=== PATIENT | male | born 1940 | race Caucasian/White ===

== ENCOUNTER → 2016-05-13 | Outpatient (CLI) | payer OTHER ==
[~2016-05-13] MED LIST: ASPI81TA7 PO; CHLO25TA PO; FLOM5CAP PO; NEXI40CA PO; OXYB5TA PO; PLAV75TA38 PO; TRAM50TA2 PO; TYLE650T35 PO; ZOFR4TAB3 PO
--- NOTE | 2016-05-13 13:05 | REP ---
Chest two views HISTORY: Arthritis Comparison: 01/01/2016 The lungs are clear. The heart is normal in size. The pulmonary vasculature is normal in appearance. Degenerative change is present in the thoracic spine. IMPRESSION: No acute disease. Signed by Jian Salomon MD 05/13/2016 12:57 P
[2016-05-13 13:14] LABS: MEAN CORPUSCULAR HGB CONC 33.4 g/dl (32.0-36.5); MEAN CORPUSCULAR VOLUME 89.7 fl (80.0-96.0); RED CELL DISTRIBUTION WIDTH 12.5 % (11.5-14.5); WHITE BLOOD COUNT 6.8 K/mm3 (4.0-10.0)
[2016-05-13 13:17] LABS: INR 1.02
[2016-05-13 14:25] LABS: ALKALINE PHOSPHATASE 77 U/L (45-117); ALT/SGPT 19 U/L (12-78); AST/SGOT 13 U/L (15-37); BILIRUBIN,TOTAL 0.3 MG/DL (0.2-1.0); CHLORIDE LEVEL 103 MEQ/L (98-107); CREATININE FOR GFR 0.95 MG/DL (0.70-1.30); POTASSIUM SERUM 3.4 MEQ/L (3.5-5.1); SODIUM LEVEL 140 MEQ/L (136-145); TOTAL PROTEIN 6.6 GM/DL (6.4-8.2)
[2016-05-13 14:37] LABS: ALBUMIN 3.7 GM/DL (3.2-5.2); ALBUMIN/GLOBULIN RATIO 1.28 (1.00-1.93); ANION GAP 8 MEQ/L (8-16); BLOOD UREA NITROGEN 14 MG/DL (7-18); CALCIUM LEVEL 8.8 MG/DL (8.8-10.2); CARBON DIOXIDE LEVEL 29 MEQ/L (21-32); GLUCOSE, FASTING 96 MG/DL (83-110)
== END ==
LOC: M ADMPAT 10:22
PROVIDERS: ATTEND Orthopaedic Surgery
DX: Z01.818 Encounter for other preprocedural examination (principal); M17.12 Unilateral primary osteoarthritis, left knee; Z79.899 Other long term (current) drug therapy

== ENCOUNTER 2016-05-26 06:04 | Inpatient (IN) | payer OTHER ==
[2016-05-13 11:17] VITALS: BP_SYST 121; BP_SYST 170; BP_DIAS 79; BP_DIAS 96
--- NOTE | 2016-05-20 20:44 | HPE ---
DATE OF PLANNED ADMISSION: 05/26/2016 ATTENDING PHYSICIAN: Francisco Granados MD HISTORY OF PRESENT ILLNESS: This is a pleasant male with continuing symptomatic left knee osteoarthritis. He has consented for a left total knee arthroplasty per Dr. Sandip Granados. Medical optimization was completed by Dr. Corcoran. X-rays are consistent with advanced osteoarthritis. ALLERGIES: The patient notes he was told he has a PENICILLIN allergy dating back to his teenager years. He states that Dr. Diallo told him he should not have any penicillin. MEDICATIONS: List includes: - Nexium 40 mg - Chlorthalidone 25 mg - Plavix 75 mg one tablet once a day - Flomax 0.4 mg one capsule 30 minutes after the same meal once a day each day - Ultram - aspirin 81 mg (to discontinue). - Colace 100 mg one capsule once a day - oxybutynin chloride 5 mg one tablet twice a day - Tylenol extra-strength arthritis pain 500 mg two tablets twice a day MEDICAL PROBLEM LIST: Includes: Left knee symptomatic osteoarthritis He has a history of stroke. Hypertension. History of left leg surgery. A ann marie was placed. Prostatectomy. Hyperlipidemia. Benign prostatic hypertrophy (BPH). Gastroesophageal reflux disease (GERD). FAMILY HISTORY: Positive for cancer. SOCIAL HISTORY: Denies smoking. Rare ethanol intake. Denies illicit drugs. REVIEW OF SYSTEMS: He denies chest pain, shortness of breath, dyspnea on exertion, fever, chills, malaise, upper respiratory, urinary tract symptoms. He recently had successful surgery with Dr. Enriquez. He also saw Dr. Corcoran recently and was told he had a urinary tract infection and is taking clindamycin. PHYSICAL EXAMINATION: Height 5 foot 7, weight 208, temperature 97.0, BP 139/70, pulse 88, respirations 16. He is a pleasant well-developed, well-nourished overweight white male in no acute distress. Alert and oriented times three. Mood and affect are appropriate. He is ambulating slow, steady with favoring of his right lower extremity, antalgic about the left. Bilateral lower extremities inspected. Skin temperature, color, sensory and motor within normal limits. Left knee. He has positive medial and lateral joint line tenderness to palpation with crepitance through flexion and extension. PFJ is concentric, static and dynamic. Otherwise benign noninfectious looking knee. PFJ is considered static and dynamic. Normocephalic. Neck: Supple. Negative jugular venous distention (JVD) or bruits. Lungs: Clear to auscultation. Chest: Rises symmetrically. Bowel soft, nontender times four. LABS: His labs were reviewed. Potassium 3.4, AST SGOT was 13. Leukocyte esterase: urine auto 3+. Blood urine 2+. WBC 151, RBC urine auto 33. Bacteria urine auto 1+. His urine culture was positive for Streptococcus gallolyticus, colony count greater than 100,000 which he is currently being treated with clindamycin 150 mg every 6 hours. Nasal sinus culture within normal limits. His chest x-ray showed no acute disease and EKG was not available, though I did have his clearance note by Dr. Corcoran stating that his EKG was reviewed and he was medically optimized. IMPRESSION: 1. Symptomatic left knee osteoarthritis. 2. Patient consented for a left total knee arthroplasty per Dr. Sandip Granados. 3. Medical optimization per Dr. Rosario. 4. score caller to OR 600 mg IV clindamycin per prior history of PENICILLIN allergy. 5. Sequential compression devices (SCDs) and thromboembolism deterrents (TEDs) in OR. 6. The patient will complete his course of clindamycin 150 mg orally every 6 hours per urinary tract infection.
[~2016-05-26] VITALS: Ht 167.6 cm; Wt 91.0 kg
[~2016-05-26 06:04] MED LIST changes: +ACETAMINOPHEN 500 MG TAB PO ONE; +LR 1,000 ML IV SCH; +VANCOMYCIN HCL 1,000 MG, VIAL MATE ADAPTER 1 EACH in D5W 250 ML IV ONE
[2016-05-26] MEDS ORDERED: fentaNYL 100 MCG/2 ML INJECTION (J3010) As Ordered ONE ×3 (06:39→08:11)
[2016-05-26] MEDS ORDERED: MIDAZOLAM INJ 2 MG/2 ML VIAL (J2250) As Ordered ONE ×2 (06:39→08:11)
[2016-05-26] MEDS ORDERED: COUM1TAB17 PO (07:07)
[2016-05-26] MEDS ORDERED: BUPIVACAINE HCL 0.5% 10 ML VIAL As Ordered ONE (07:21)
[2016-05-26] MEDS ORDERED: ROPIvacaine 0.5% 30 ML INJECTION (J2795) As Ordered ONE (07:21)
[2016-05-26] MEDS ORDERED: CLINDAMYCIN INJ 900MG/6ML VIAL As Ordered ONE (07:22)
[2016-05-26] MEDS ORDERED: TRANEXAMIC ACID 100 MG/ML 10ML VIAL As Ordered ONE (07:37)
[2016-05-26] MEDS ORDERED: EPINEPHrine INJ 1 MG/ML 1ML VIAL/AMP As Ordered ONE (07:38)
[2016-05-26] MEDS: fentaNYL 100 MCG/2 ML INJECTION (J3010) XX ONE ×2 (07:42→08:41)
[2016-05-26] MEDS ORDERED: PROPOFOL 500 MG/50 ML VIAL As Ordered ONE (08:11)
[2016-05-26] MEDS ORDERED: PHENYLephrine HCL 500 MCG/5 ML (100MCG/ML) SYRINGE (J2370) As Ordered ONE (08:11)
[2016-05-26] MEDS ORDERED: BUPIVACAINE HCL 0.5% 10 ML VIAL XX ONE (08:41)
[2016-05-26] MEDS ORDERED: TRANEXAMIC ACID 100 MG/ML 10ML VIAL XX ONE (08:41)
[2016-05-26] MEDS ORDERED: CLINDAMYCIN INJ 900MG/6ML VIAL IR ONE (08:41)
[2016-05-26] MEDS ORDERED: EPINEPHrine INJ 1 MG/ML 1ML VIAL/AMP XX ONE (08:41)
[2016-05-26] MEDS ORDERED: ROPIvacaine 0.5% 30 ML INJECTION (J2795) XX ONE (08:41)
[2016-05-26] MEDS: MIRALAX *UNIT DOSE* 17GM PACKET PO SCH (09:00)
[2016-05-26] MEDS: SENOKOT S TAB PO SCH ×2 (09:00→21:08)
[2016-05-26] MEDS ORDERED: NALBUPHINE HCL 10 MG/ML AMP (J2300) IV PRN (10:00)
[2016-05-26] MEDS ORDERED: diphenhydrAMINE INJ 50MG/ML VIAL (J1200) IV PRN (10:00)
[2016-05-26] MEDS ORDERED: MORPHINE PCA 1MG/ML 100ML CADD IV PRN (10:00)
[2016-05-26] MEDS ORDERED: NALOXONE INJ 0.4 MG/1 ML VIAL (J2310) IV PRN (10:00)
[2016-05-26] MEDS ORDERED: ONDANSETRON 4MG/2ML VIAL (J2405) IV PRN (10:00)
[2016-05-26] MEDS ORDERED: EPIDURAL/PCA KEYS XX PRN (10:00)
--- NOTE | 2016-05-26 10:31 | RO ---
DATE OF PROCEDURE: 05/26/2016 PREPROCEDURE DIAGNOSIS: Left knee valgus degenerative arthritis. POSTPROCEDURE DIAGNOSIS: Left knee valgus degenerative arthritis. PROCEDURE: Left total knee arthroplasty using a size 3 cruciate retaining femoral component with a size 4 tibial tray with a 12.5 mm rotating platform polyethylene insert and a 35 mm polyethylene button. All components were cemented The prosthesis made by [employer]. It was a PFC knee. SURGEON: Francisco Granados MD STRIPE MARKER: Mrs. Xiomy Armstrong ANESTHESIA: Spinal with left femoral nerve block. COMPLICATIONS: None. ESTIMATED BLOOD LOSS: 20 mL. SPECIMENS: Joint surface. DESCRIPTION OF PROCEDURE: After antibiotics were given intravenously preoperatively and a successful spinal and left femoral nerve block anesthetic had been established, tourniquet was placed on the left upper thigh and not inflated. The left lower extremity was then prepped and draped in the usual sterile fashion. Then, the leg was elevated. Then, after appropriate time-out, the tourniquet was inflated to 250 mmHg. A longitudinal incision was made for a medial parapatellar approach to the knee. Bovie cautery used to coagulate crossing vessels. A medial parapatellar arthrotomy performed. Limited dissection proximal medially was performed because of this valgus knee; and then, we everted the patella and flexed the knee. We removed any remaining cartilage off the medial frontal condyle, such that the jig would fit flush. There was no cartilage left in the lateral compartment. The drill was placed down the center of the femoral canal by hand and eye. I made sure that we were aligned with the distal femur. Then, the intramedullary ann marie advanced until we could feel the screw above in the femoral shaft, and the jig was then set at 5-degree valgus cut, 10-mm resection level for a left knee, then pinned in position, and then distal femoral cut performed. AP sizing jig measured between a 3 and a 4. It was a little bit closer to a 3. Thus, I pinned it in a size 3. I used the external rotation jig at 3 degrees because of the potential wear for this valgus knee at the posterolateral condyle, and I also did a secondary check using Whitesides line and the epicondylar axis to make sure it was as close as perpendicular as possible by my estimation. The 4-in-1 block was then pinned into position. Then, the anterior and posterior chamfer cuts performed. We then exposed the proximal tibia, used the extramedullary alignment jig to be sure we were parallel to the mechanical axis, and we measured both the medial and lateral tibial plateaus, and it came out about the same at about 4 mm of resection equally. The jig was pinned in position, and an extramedullary alignment ann marie was used for a secondary check to be sure we were parallel to the mechanical axis. We appeared to be so; and then, then the proximal tibial osteotomy was then performed. We then placed the lamina brake reliner laterally and performed a completion of medial meniscectomy. There was minimal osteophytes medially noted, but what did remain were removed. We then placed the lamina brake reliner medially and performed a completion of lateral meniscectomy with debridement of posterior and lateral osteophytes. We then used the spacer blocks, and a 12.5 actually fit the best, and he was surprisingly very symmetrical in both his flexion space and extension space. There was perfect soft tissue balancing without any need for releases. I was quite surprised, given the valgus alignment of the knee. Thus, at this point, I did feel that a posterior cruciate-retaining component would be adequate. We did not need to go to the posterior cruciate sacrificing. The proximal tibia was then exposed and sized for a #4 tibial tray, which was pinned, reamed, and broached into position, followed by the 12.5 polyethylene, and then the #3 femoral component; and the knee had excellent range of motion and good stability to both varus and valgus stress testing in flexion and in extension. We then brought the knee to extension, everted the patella, and performed a patellar osteotomy, sized for a 35 button. The lug holes were drilled. Patellofemoral tracking was anatomic. We then drilled the lug holes for the femur, removed all the trial components, copiously pulsatile lavage irrigated out the knee joint of any the excess debris, and made sure all the bony surfaces were thoroughly dried. As I was doing that, my apartment assistant manager, Jewel Xiomy Nathaniel mixed the cement on the back table. She was also critical to the success of the procedure by helping to manipulate the knee as needed, help with appropriate soft tissue retraction, help to close the wound, and prepare the patient, and many other tasks to help the operation go smoothly and efficiently. There was a bit of a cyst in the proximal tibia, which I curetted out; and then, I placed some fragments of bone graft that I rongeured away from the bone cuts from off the femur to fill that area; and then, we cemented the tibial tray, removed excess cement; and then, we cemented the femoral component, removed excess cement, brought the knee into extension, and then cemented the patellar button, held the knee in extension with a clamp until the cement had hardened. While it was hardening, I copiously pulsatile lavage irrigated out the knee joint once again, as I did several times throughout the operation, then closed the apex of the wound with two #1 polydioxanone suture (PDS) sutures. The medial parapatellar was closed with a single PDS at the appropriate alignment, and then we closed the deep fascia and capsule with a running double-arm Stratafix suture. Tourniquet was then released. Copiously pulsatile lavage irrigated. Placed the PainBuster catheter. It was noteworthy that we did place the tranexamic acid (TXA) solution after we irrigated out the knee joint before closure of the arthrotomy. We then closed the deep subdermal tissues with interrupted #2-0 PDS sutures. The skin was closed with breanne, covered by Adaptic dry sterile bulky dressing, and then he was transferred to the recovery room in stable condition. There were no intraoperative complications.
[2016-05-26] MEDS ORDERED: fentaNYL 100 MCG/2 ML INJECTION (J3010) IV ONE (10:45)
[2016-05-26] MEDS ORDERED: MIDAZOLAM INJ 2 MG/2 ML VIAL (J2250) IV ONE ×2 (10:45→11:00)
[2016-05-26] MEDS ORDERED: FLEET ENEMA PR PRN (11:00)
[2016-05-26] MEDS ORDERED: ACETAMINOPHEN TAB 650MG DOSE (2X325MG) PO PRN (11:00)
[2016-05-26] MEDS ORDERED: LIDOCAINE 2% INJ 100 MG/5 ML SDV (FOR ANES.) As Ordered ONE (11:05)
--- NOTE | 2016-05-26 12:13 | CR ---
DATE OF CONSULTATION: 05/26/2016 REQUESTED BY: Dr. Sandip Granados. PRIMARY CARE PROVIDER: Dr. Jian Corcoran. REASON FOR CONSULTATION: Medical management. HISTORY OF PRESENT ILLNESS: This is a 76-year-old male patient with underlying medical history of cerebrovascular accident (CVA) with no residual deficits, hypertension, dyslipidemia, prostatectomy, benign prostate hypertrophy (BPH), gastroesophageal reflux disease (GERD), osteoarthritis, admitted under orthopedic service status post left total knee arthroplasty. Medicine consulted for medical management. Patient seen and examined. No acute events. Currently comfortable, in no significant pain with spinal block. Denies any chest pain, pressure or discomfort. Denies any shortness of breath. Denies history of chronic obstructive pulmonary disease (COPD). Does not use oxygen. Does not use CPAP at home. Denies history or obstructive sleep apnea. ALLERGIES: Patient notes allergies to PENICILLIN dated back many years ago, unknown reaction. PAST MEDICAL HISTORY: Left knee osteoarthritis. History of stroke May 2009 with no residual deficit. Hypertension. History of left leg surgery with ann marie placement. Prostatectomy. Dyslipidemia. Benign prostatic hypertrophy. Gastroesophageal reflux disease (GERD). PAST SURGICAL HISTORY: Prostatectomy. Left leg surgery with ann marie placement. FAMILY HISTORY: Noncontributory. SOCIAL HISTORY: Quit smoking 30 years ago. Drinks about six cans of beer in half a year. Denies elicit drug use. Lives with his girlfriend. Review of systems negative except for those mentioned in the history of present illness. HOME MEDICATION: - aspirin 81 mg daily - Plavix 75 mg by mouth daily, has been on hold for surgery - acetaminophen 650 mg by mouth twice daily as needed - chlorthalidone 25 mg by mouth daily - Nexium 40 mg by mouth daily - Flomax 0.4 mg by mouth daily at nighttime - Coumadin 5 mg by mouth PHYSICAL EXAMINATION: General: Patient alert and oriented times three. In no acute distress. HEENT: Normocephalic, atraumatic. Cranial nerves II-XII grossly intact. Pulmonary: Bilaterally clear to auscultation. Cardiac: Regular S1, S2. Abdomen: Soft, nontender, nondistended. Extremities: Dorsalis pedis/posterior tibial (DP/PT) pulses intact bilateral lower extremities. LABORATORY: Pending. ASSESSMENT AND PLAN: This is a 76-year-old male patient with underlying medical history of cerebrovascular accident (CVA) with no residual deficit, hypertension, dyslipidemia, gastroesophageal reflux disease (GERD), benign prostatic hypertrophy (BPH), osteoarthritis, admitted under orthopedic service for left total knee replacement surgery. PROBLEMS: 1. Osteoarthritis admitted under orthopedics status post left total knee replacement surgery. Deep venous thrombosis (DVT) prophylaxis, physical therapy. Perioperative management and pain management as per orthopedic service. Bowel regimen has been added. Followup INR. Patient likely will be on Coumadin for DVT prophylaxis. Plavix has been on hold. Will be restarting aspirin tomorrow given history of CVA. Hold Plavix until patient is off Coumadin. 2. Hypertension. Continue home medication, monitor blood pressure. 3. Dyslipidemia. Dietary modification. Continue to follow as outpatient. 4. History of cerebrovascular accident (CVA). Continue aspirin. Patient will be on Coumadin. Monitor blood pressure. 5. Benign prostatic hypertrophy (BPH), continue Flomax. 6. Deep venous thrombosis (DVT) prophylaxis. Patient will be on Coumadin likely by orthopedic service. DISCHARGE PLANNING: As per primary team.
[2016-05-26 12:15] VITALS: BP 159/83
[2016-05-26 12:45] VITALS: BP 154/71
[2016-05-26] MEDS ORDERED: PATIENT IS CURRENTLY ON AN ON-Q PAIN BUSTER PAIN RELIEF SYSTEM XX SCH (13:30)
[2016-05-26 13:45] VITALS: BP 124/63
[2016-05-26 14:45] VITALS: BP 114/80
[2016-05-26] MEDS ORDERED: ROPIvacaine 0.5% 30 ML INJECTION (J2795) ONE (15:28)
[2016-05-26] MEDS ORDERED: LIDOCAINE 1% MDV 20ML VIAL ONE (15:28)
[2016-05-26] MEDS ORDERED: EPINEPHrine INJ 1 MG/ML 1ML VIAL/AMP ONE (15:28)
[2016-05-26] MEDS: LR 1,000 ML IV SCH ×2 (15:48→21:08)
[2016-05-26] MEDS: CHLORTHALIDONE 25 MG TAB PO SCH (17:53)
[2016-05-26] MEDS: TAMSULOSIN 0.4 MG CAP PO SCH (17:54)
[2016-05-26] MEDS: ASPIRIN 81 MG ENTERIC TAB PO SCH (17:54)
[2016-05-26] MEDS ORDERED: VANCOMYCIN HCL 1,000 MG, VIAL MATE ADAPTER 1 EACH in D5W 250 ML IV ONE (19:00)
[2016-05-26 22:00] VITALS: BP 115/64
[2016-05-27 02:00] VITALS: BP 125/96
[2016-05-27 06:00] VITALS: BP 124/65
[2016-05-27 07:16] LABS: MEAN CORPUSCULAR HEMOGLOBIN 29.2 pg (27.0-33.0); MEAN CORPUSCULAR HGB CONC 32.7 g/dl (32.0-36.5); MEAN CORPUSCULAR VOLUME 89.1 fl (80.0-96.0); RED CELL DISTRIBUTION WIDTH 12.5 % (11.5-14.5); WHITE BLOOD COUNT 8.9 K/mm3 (4.0-10.0)
[2016-05-27 07:29] LABS: INR 1.06
[2016-05-27 07:32] LABS: ANION GAP 7 MEQ/L (8-16); BLOOD UREA NITROGEN 10 MG/DL (7-18); CALCIUM LEVEL 8.3 MG/DL (8.8-10.2); CARBON DIOXIDE LEVEL 32 MEQ/L (21-32); CHLORIDE LEVEL 97 MEQ/L (98-107); CREATININE FOR GFR 0.89 MG/DL (0.70-1.30); GLOMERULAR FILTRATION RATE > 60.0 (>42); GLUCOSE, FASTING 105 MG/DL (83-110); MAGNESIUM LEVEL 1.7 MG/DL (1.8-2.4); POTASSIUM SERUM 3.5 MEQ/L (3.5-5.1); SODIUM LEVEL 136 MEQ/L (136-145)
[2016-05-27] MEDS: PERCOCET 5MG/325MG TAB PO PRN ×3 (08:31→22:07)
[2016-05-27 09:11] VITALS: BP 188/98
[2016-05-27 09:29] VITALS: BP 158/84
[2016-05-27] MEDS: SENOKOT S TAB PO SCH ×2 (10:29→22:06)
[2016-05-27] MEDS: PANTOPRAZOLE 40MG TAB (PROTONIX) PO SCH (10:29)
[2016-05-27] MEDS: MOM 30ML SUSPENSION UDC PO SCH (10:29)
[2016-05-27] MEDS: MIRALAX *UNIT DOSE* 17GM PACKET PO SCH (10:29)
[2016-05-27] MEDS: TAMSULOSIN 0.4 MG CAP PO SCH (10:30)
[2016-05-27] MEDS: ASPIRIN 81 MG ENTERIC TAB PO SCH (10:31)
[2016-05-27] MEDS: CHLORTHALIDONE 25 MG TAB PO SCH (10:31)
--- NOTE | 2016-05-27 10:34 | REP ---
LEFT KNEE: AP and lateral views of left knee performed. There is total knee arthroplasty present with femoral and tibial components appearing to be in good position. There is no fracture or dislocation. Metallic skin breanne are seen anteriorly. Signed by Andres Israel MD 05/27/2016 04:55 P
[2016-05-27] MEDS: HEPARIN SOD (PORCINE) 5000 UNITS/ML VIAL SQ SCH ×3 (11:53→22:05)
--- NOTE | 2016-05-27 12:37 | IPNPDOC ---
Subjective Date Seen The patient was seen on 05/27/16. Subjective Chief Complaint/HPI The patient is a 76-year-old male admitted with a reason for visit of Arthritis Left Knee. Events since last encounter no acute events overnight, reported surgical pain within tolerable limits. Denied fever, chill, chest pain, sob. General: Denies: Chills, Fatigue, Night Sweats Constitutional: Denies: Chills, Fever Eyes: Denies: Pain, Vision change ENT: Denies: Dysphagia, Ear Pain, Head Aches Pulmonary: Denies: Cough, Dyspnea Cardiovascular: Denies: Chest Pain, Palpitations Gastrointestinal: Denies: Nausea, Vomiting Musculoskeletal: Reports: Leg Pain Neurological: Denies: Numbness, Weakness Objective Physical Examination General Exam: Positive: Alert, Cooperative, No Acute Distress Eye Exam: Positive: PERRLA ENT Exam: Positive: Atraumatic, Mucous membr. moist/pink Neck Exam: Positive: Supple Chest Exam: Positive: Clear to auscultation, Normal air movement Heart Exam: Positive: Normal S1, Normal S2, Rate Normal Abdomen Exam: Positive: Normal bowel sounds, Soft, Negative: Hepatospenomegaly, Tenderness Extremity Exam: Positive: Other (dp/pt 2+ b/l ), Negative: Clubbing, Cyanosis, Edema Assessment /Plan Problems (1) Osteoarthritis Status: Acute Problem Text: s/p left TKA 05/26, admitted under ortho, gary-op management, wound, pain med and dvt ppx as per ortho, on heparin SQ for DVT ppx PT and PM&R eval as per ortho (2) CVA (cerebral vascular accident) Status: Chronic Problem Text: no residual def, c/w asa, restart plavix tomorrow monitor BP (3) HTN (hypertension) Status: Chronic Problem Text: c/w bp meds (4) BPH (benign prostatic hyperplasia) Status: Chronic Problem Text: flomax (5) HLD (hyperlipidemia) Status: Chronic Problem Text: outpatient f/u, diet modification Plan/VTE VTE Prophylaxis Ordered?: Yes (heparin SQ) Disposition as per ortho, PM&R screen VS, I&O, 24H, Fishbone Vital Signs/I&O Vital Signs Date Time Temp Pulse Resp B/P Pulse Ox O2 Delivery O2 Flow Rate FiO2 05/27/16 09:29 99.3 86 16 158/84 93 Room Air 05/27/16 06:00 2.0 I&O- Last 24 Hours up to 6 AM 05/27/16 06:00 Intake Total 2215 ml Output Total 2820 ml Balance -605 ml Laboratory Data 24H LABS Laboratory Tests 2 05/27/16 06:45: Anion Gap 7L, Blood Urea Nitrogen 10, Creatinine 0.89, Sodium Level 136, Potassium Level 3.5, Chloride Level 97L, Carbon Dioxide Level 32, Calcium Level 8.3L, Glomerular Filtration Rate > 60.0, Magnesium Level 1.7L, Prothromb Time International Ratio 1.06, Prothrombin Time 13.9 CBC/BMP Laboratory Tests 05/27/16 06:45 Calcium Level 8.3 L, Red Blood Count 4.60, Mean Corpuscular Volume 89.1, Mean Corpuscular Hemoglobin 29.2, Mean Corpuscular Hemoglobin Concent 32.7, Red Cell Distribution Width 12.5 AIMEE KNOWLES MD May 27, 2016 12:37
[2016-05-27] MEDS ORDERED: POTASSIUM CHLORIDE 10 MEQ SR TABLET PO ONE (13:00)
[2016-05-27] MEDS ORDERED: MAG SULF 1GM/100ML (MAG RUN) 1 GM in APPROPRIATE DILUENT 1 EA IV ONE (13:00)
[2016-05-27 14:00] VITALS: BP 145/74
[2016-05-27] MEDS: ONDANSETRON 4 MG TAB (S0181) PO PRN (17:23)
[2016-05-27 22:00] VITALS: BP 156/70
[2016-05-28] MEDS: PERCOCET 5MG/325MG TAB PO PRN ×5 (02:57→21:51)
[2016-05-28 06:00] VITALS: BP 122/75
[2016-05-28 07:06] LABS: INR 1.1
[2016-05-28 07:07] LABS: MEAN CORPUSCULAR HEMOGLOBIN 29.5 pg (27.0-33.0); MEAN CORPUSCULAR HGB CONC 33.7 g/dl (32.0-36.5); MEAN CORPUSCULAR VOLUME 87.7 fl (80.0-96.0); RED CELL DISTRIBUTION WIDTH 12.4 % (11.5-14.5); WHITE BLOOD COUNT 10.6 K/mm3 (4.0-10.0)
[2016-05-28 07:26] LABS: ANION GAP 8 MEQ/L (8-16); BLOOD UREA NITROGEN 10 MG/DL (7-18); CALCIUM LEVEL 8.7 MG/DL (8.8-10.2); CARBON DIOXIDE LEVEL 33 MEQ/L (21-32); CHLORIDE LEVEL 94 MEQ/L (98-107); CREATININE FOR GFR 0.97 MG/DL (0.70-1.30); GLOMERULAR FILTRATION RATE > 60.0 (>42); GLUCOSE, FASTING 105 MG/DL (83-110); MAGNESIUM LEVEL 2.2 MG/DL (1.8-2.4); POTASSIUM SERUM 3.7 MEQ/L (3.5-5.1); SODIUM LEVEL 135 MEQ/L (136-145)
[2016-05-28] MEDS ORDERED: PERC5TAB6 PO (07:43)
[2016-05-28] MEDS: MIRALAX *UNIT DOSE* 17GM PACKET PO SCH (07:54)
[2016-05-28] MEDS: ASPIRIN 81 MG ENTERIC TAB PO SCH (07:54)
[2016-05-28] MEDS: PANTOPRAZOLE 40MG TAB (PROTONIX) PO SCH (07:54)
[2016-05-28] MEDS: TAMSULOSIN 0.4 MG CAP PO SCH (07:54)
[2016-05-28] MEDS: MOM 30ML SUSPENSION UDC PO SCH (07:54)
[2016-05-28] MEDS: CHLORTHALIDONE 25 MG TAB PO SCH (07:54)
[2016-05-28] MEDS: SENOKOT S TAB PO SCH ×2 (07:54→20:10)
[2016-05-28] MEDS ORDERED: CLOPIDOGREL 75 MG TAB PO SCH (09:00)
[2016-05-28] MEDS: ONDANSETRON 4 MG TAB (S0181) PO PRN ×2 (12:15→16:28)
[2016-05-28 14:00] VITALS: BP 139/75
[2016-05-28] MEDS: diphenhydrAMINE 25 MG CAP PO PRN ×2 (16:26→21:49)
--- NOTE | 2016-05-28 19:30 | IPNPDOC ---
Subjective Date Seen The patient was seen on 05/28/16. Subjective Chief Complaint/HPI The patient is a 76-year-old male admitted with a reason for visit of Arthritis Left Knee. Events since last encounter No acute events overnight, reported surgical pain tolerable. Denied CP/Pal/N/V/ abd pain. passing gas Objective Physical Examination General Exam: Positive: Alert, Cooperative, No Acute Distress Eye Exam: Positive: PERRLA ENT Exam: Positive: Atraumatic, Mucous membr. moist/pink Neck Exam: Positive: Supple Chest Exam: Positive: Clear to auscultation, Normal air movement Heart Exam: Positive: Normal S1, Normal S2, Rate Normal Abdomen Exam: Positive: Normal bowel sounds, Soft, Negative: Hepatospenomegaly, Tenderness Extremity Exam: Positive: Other (dp/pt 2+ b/l ), Negative: Clubbing, Cyanosis, Edema Assessment /Plan Problems (1) Osteoarthritis Status: Acute Problem Text: s/p left TKA 05/26, admitted under ortho, gary-op management, wound, pain med and dvt ppx as per ortho, was heparin SQ for DVT ppx, now on asa, plavix and early ambulation PT and PM&R eval as per ortho (2) CVA (cerebral vascular accident) Status: Chronic Problem Text: no residual def, c/w asa, restart plavix monitor BP (3) HTN (hypertension) Status: Chronic Problem Text: c/w bp meds (4) BPH (benign prostatic hyperplasia) Status: Chronic Problem Text: flomax (5) HLD (hyperlipidemia) Status: Chronic Problem Text: outpatient f/u, diet modification Plan/VTE VTE Prophylaxis Ordered?: Yes (on asa and plavix and early ambulate and venodyne) Disposition pending ortho and PT VS, I&O, 24H, Fishbone Vital Signs/I&O Vital Signs Date Time Temp Pulse Resp B/P Pulse Ox O2 Delivery O2 Flow Rate FiO2 05/28/16 16:57 16 05/28/16 15:17 99.8 05/28/16 14:00 95 139/75 92 Room Air 05/27/16 06:00 2.0 I&O- Last 24 Hours up to 6 AM 05/28/16 06:00 Intake Total 2040 ml Output Total 1725 ml Balance 315 ml Laboratory Data 24H LABS Laboratory Tests 2 05/28/16 06:30: Anion Gap 8, Blood Urea Nitrogen 10, Creatinine 0.97, Sodium Level 135L, Potassium Level 3.7, Chloride Level 94L, Carbon Dioxide Level 33H, Calcium Level 8.7L, Glomerular Filtration Rate > 60.0, Magnesium Level 2.2, Prothromb Time International Ratio 1.10, Prothrombin Time 14.3 CBC/BMP Laboratory Tests 05/28/16 06:30 Calcium Level 8.7 L, Red Blood Count 4.54, Mean Corpuscular Volume 87.7, Mean Corpuscular Hemoglobin 29.5, Mean Corpuscular Hemoglobin Concent 33.7, Red Cell Distribution Width 12.4 AIMEE KNOWLES MD May 28, 2016 19:30
[2016-05-28 22:00] VITALS: BP 150/73
[2016-05-29] MEDS: diphenhydrAMINE 25 MG CAP PO PRN ×4 (01:45→21:37)
[2016-05-29] MEDS: PERCOCET 5MG/325MG TAB PO PRN ×5 (01:47→21:38)
[2016-05-29] MEDS ORDERED: CLOPIDOGREL 75 MG TAB PO ONE (03:15)
[2016-05-29 06:00] VITALS: BP 140/78
[2016-05-29 06:45] LABS: MEAN CORPUSCULAR HEMOGLOBIN 29.2 pg (27.0-33.0); MEAN CORPUSCULAR HGB CONC 33.2 g/dl (32.0-36.5); MEAN CORPUSCULAR VOLUME 88.2 fl (80.0-96.0); RED CELL DISTRIBUTION WIDTH 12.6 % (11.5-14.5); WHITE BLOOD COUNT 9.1 K/mm3 (4.0-10.0)
[2016-05-29 06:59] LABS: ANION GAP 8 MEQ/L (8-16); BLOOD UREA NITROGEN 12 MG/DL (7-18); CALCIUM LEVEL 8.5 MG/DL (8.8-10.2); CARBON DIOXIDE LEVEL 33 MEQ/L (21-32); CHLORIDE LEVEL 94 MEQ/L (98-107); CREATININE FOR GFR 1.04 MG/DL (0.70-1.30); GLOMERULAR FILTRATION RATE > 60.0 (>42); GLUCOSE, FASTING 106 MG/DL (83-110); MAGNESIUM LEVEL 2.3 MG/DL (1.8-2.4); POTASSIUM SERUM 3.5 MEQ/L (3.5-5.1); SODIUM LEVEL 135 MEQ/L (136-145)
[2016-05-29] MEDS ORDERED: POTASSIUM CHLORIDE 10 MEQ SR TABLET PO ONE (07:30)
[2016-05-29 08:12] VITALS: BP 144/80
[2016-05-29] MEDS: ASPIRIN 81 MG ENTERIC TAB PO SCH (09:06)
[2016-05-29] MEDS: MOM 30ML SUSPENSION UDC PO SCH (09:06)
[2016-05-29] MEDS: SENOKOT S TAB PO SCH ×2 (09:06→20:03)
[2016-05-29] MEDS: PANTOPRAZOLE 40MG TAB (PROTONIX) PO SCH (09:06)
[2016-05-29] MEDS: CHLORTHALIDONE 25 MG TAB PO SCH (09:06)
[2016-05-29] MEDS: TAMSULOSIN 0.4 MG CAP PO SCH (09:06)
[2016-05-29] MEDS: MIRALAX *UNIT DOSE* 17GM PACKET PO SCH (09:06)
[2016-05-29] MEDS ORDERED: CLOPIDOGREL 75 MG TAB PO SCH (12:00)
[2016-05-29 14:00] VITALS: BP 131/72
--- NOTE | 2016-05-29 21:14 | IPNPDOC ---
Subjective Date Seen The patient was seen on 05/29/16. Subjective Chief Complaint/HPI The patient is a 76-year-old male admitted with a reason for visit of Arthritis Left Knee. Events since last encounter No acute events overnight, Denied CP/SOB/abd pain/n/v, surgical pain tolerable Objective Physical Examination General Exam: Positive: Alert, Cooperative, No Acute Distress Eye Exam: Positive: PERRLA ENT Exam: Positive: Atraumatic, Mucous membr. moist/pink Neck Exam: Positive: Supple Chest Exam: Positive: Clear to auscultation, Normal air movement Heart Exam: Positive: Normal S1, Normal S2, Rate Normal Abdomen Exam: Positive: Normal bowel sounds, Soft, Negative: Hepatospenomegaly, Tenderness Extremity Exam: Positive: Other (dp/pt 2+ b/l ), Negative: Clubbing, Cyanosis, Edema Assessment /Plan Problems (1) Osteoarthritis Status: Acute Problem Text: s/p left TKA 05/26, admitted under ortho, gary-op management, wound, pain med and dvt ppx as per ortho, was on heparin SQ for DVT ppx, now on asa, plavix and early ambulation PT and PM&R eval as per ortho (2) CVA (cerebral vascular accident) Status: Chronic Problem Text: no residual def, c/w asa, restart plavix monitor BP (3) HTN (hypertension) Status: Chronic Problem Text: c/w bp meds (4) BPH (benign prostatic hyperplasia) Status: Chronic Problem Text: flomax (5) HLD (hyperlipidemia) Status: Chronic Problem Text: outpatient f/u, diet modification Plan/VTE VTE Prophylaxis Ordered?: Yes (on asa and plavix and early ambulate and venodyne) Disposition as per primary team, pending PT VS, I&O, 24H, Fishbone Vital Signs/I&O Vital Signs Date Time Temp Pulse Resp B/P Pulse Ox O2 Delivery O2 Flow Rate FiO2 05/29/16 18:18 18 05/29/16 14:00 98.7 89 131/72 95 Room Air 05/27/16 06:00 2.0 I&O- Last 24 Hours up to 6 AM 05/29/16 06:00 Intake Total 480 ml Output Total 1375 ml Balance -895 ml Laboratory Data 24H LABS Laboratory Tests 2 05/29/16 06:30: Anion Gap 8, Blood Urea Nitrogen 12, Creatinine 1.04, Sodium Level 135L, Potassium Level 3.5, Chloride Level 94L, Carbon Dioxide Level 33H, Calcium Level 8.5L, Glomerular Filtration Rate > 60.0, Magnesium Level 2.3 CBC/BMP Laboratory Tests 05/29/16 06:30 Calcium Level 8.5 L, Red Blood Count 4.25 L, Mean Corpuscular Volume 88.2, Mean Corpuscular Hemoglobin 29.2, Mean Corpuscular Hemoglobin Concent 33.2, Red Cell Distribution Width 12.6 AIMEE KNOWLES MD May 29, 2016 21:14
[2016-05-29 22:00] VITALS: BP 155/87
[2016-05-30] MEDS: PERCOCET 5MG/325MG TAB PO PRN ×2 (02:11→06:41)
[2016-05-30] MEDS: diphenhydrAMINE 25 MG CAP PO PRN ×2 (02:12→06:41)
[2016-05-30 06:00] VITALS: BP 136/75
[2016-05-30 07:12] LABS: ANION GAP 7 MEQ/L (8-16); BLOOD UREA NITROGEN 14 MG/DL (7-18); CALCIUM LEVEL 8.3 MG/DL (8.8-10.2); CARBON DIOXIDE LEVEL 33 MEQ/L (21-32); CHLORIDE LEVEL 94 MEQ/L (98-107); CREATININE FOR GFR 1.03 MG/DL (0.70-1.30); GLOMERULAR FILTRATION RATE > 60.0 (>42); GLUCOSE, FASTING 106 MG/DL (83-110); MAGNESIUM LEVEL 2.4 MG/DL (1.8-2.4); POTASSIUM SERUM 3.2 MEQ/L (3.5-5.1); SODIUM LEVEL 134 MEQ/L (136-145)
[2016-05-30 07:24] LABS: MEAN CORPUSCULAR HEMOGLOBIN 29.1 pg (27.0-33.0); MEAN CORPUSCULAR HGB CONC 32.7 g/dl (32.0-36.5); MEAN CORPUSCULAR VOLUME 89.1 fl (80.0-96.0); RED CELL DISTRIBUTION WIDTH 12.3 % (11.5-14.5); WHITE BLOOD COUNT 8.4 K/mm3 (4.0-10.0)
[2016-05-30] MEDS ORDERED: MAGNESIUM CITRATE 300 ML BTL PO SCH (08:15)
[2016-05-30] MEDS ORDERED: MAGNESIUM CITRATE 300 ML BTL PO ONE (08:30)
[2016-05-30] MEDS ORDERED: CLOPIDOGREL 75 MG TAB PO SCH (09:00)
[2016-05-30] MEDS: CHLORTHALIDONE 25 MG TAB PO SCH (09:58)
[2016-05-30] MEDS: MOM 30ML SUSPENSION UDC PO SCH (09:58)
[2016-05-30] MEDS: MIRALAX *UNIT DOSE* 17GM PACKET PO SCH (09:58)
[2016-05-30] MEDS: PANTOPRAZOLE 40MG TAB (PROTONIX) PO SCH (09:59)
[2016-05-30] MEDS: TAMSULOSIN 0.4 MG CAP PO SCH (09:59)
[2016-05-30] MEDS: ASPIRIN 81 MG ENTERIC TAB PO SCH (09:59)
[2016-05-30] MEDS: SENOKOT S TAB PO SCH ×2 (09:59→22:08)
[2016-05-30] MEDS: traMADol 50 MG TAB PO PRN ×3 (10:58→23:58)
[2016-05-30] MEDS: CLOPIDOGREL 75 MG TAB PO SCH (11:58)
[2016-05-30 14:00] VITALS: BP 130/60
--- NOTE | 2016-05-30 17:38 | IPNPDOC ---
Subjective Date Seen The patient was seen on 05/30/16. Subjective Chief Complaint/HPI The patient is a 76-year-old male admitted with a reason for visit of Arthritis Left Knee. Events since last encounter no acute events overnight, surgical pain tolerable, denied n/v/abd pain/cp./sob Objective Physical Examination General Exam: Positive: Alert, Cooperative, No Acute Distress Eye Exam: Positive: PERRLA ENT Exam: Positive: Atraumatic, Mucous membr. moist/pink Neck Exam: Positive: Supple Chest Exam: Positive: Clear to auscultation, Normal air movement Heart Exam: Positive: Normal S1, Normal S2, Rate Normal Abdomen Exam: Positive: Normal bowel sounds, Soft, Negative: Hepatospenomegaly, Tenderness Extremity Exam: Positive: Other (dp/pt 2+ b/l ), Negative: Clubbing, Cyanosis, Edema Assessment /Plan Problems (1) Osteoarthritis Status: Acute Problem Text: s/p left TKA 05/26, admitted under ortho, gary-op management, wound, pain med and dvt ppx as per ortho, was on heparin SQ for DVT ppx, now on asa, plavix and early ambulation PT and PM&R eval as per ortho (2) CVA (cerebral vascular accident) Status: Chronic Problem Text: no residual def, c/w asa, restart plavix monitor BP (3) HTN (hypertension) Status: Chronic Problem Text: c/w bp meds (4) BPH (benign prostatic hyperplasia) Status: Chronic Problem Text: flomax (5) HLD (hyperlipidemia) Status: Chronic Problem Text: outpatient f/u, diet modification Plan/VTE VTE Prophylaxis Ordered?: Yes (on asa and plavix and early ambulate and venodyne) Disposition per pt and primary surgical team VS, I&O, 24H, Fishbone Vital Signs/I&O Vital Signs Date Time Temp Pulse Resp B/P Pulse Ox O2 Delivery O2 Flow Rate FiO2 05/30/16 17:10 18 05/30/16 14:00 98.5 84 130/60 93 Room Air 05/27/16 06:00 2.0 I&O- Last 24 Hours up to 6 AM 05/30/16 06:00 Intake Total 1800 ml Output Total 1285 ml Balance 515 ml Laboratory Data 24H LABS Laboratory Tests 2 05/30/16 06:27: Anion Gap 7L, Blood Urea Nitrogen 14, Creatinine 1.03, Sodium Level 134L, Potassium Level 3.2L, Chloride Level 94L, Carbon Dioxide Level 33H, Calcium Level 8.3L, Glomerular Filtration Rate > 60.0, Magnesium Level 2.4 CBC/BMP Laboratory Tests 05/30/16 06:27 Calcium Level 8.3 L, Red Blood Count 4.04 L, Mean Corpuscular Volume 89.1, Mean Corpuscular Hemoglobin 29.1, Mean Corpuscular Hemoglobin Concent 32.7, Red Cell Distribution Width 12.3 AIMEE KNOWLES MD May 30, 2016 17:38
[2016-05-30 22:00] VITALS: BP 136/69
[2016-05-31] MEDS ORDERED: POTASSIUM CHLORIDE 10 MEQ SR TABLET PO ONE (04:15)
[2016-05-31] MEDS: traMADol 50 MG TAB PO PRN ×3 (05:54→18:42)
[2016-05-31 06:00] VITALS: BP 144/68
[2016-05-31] MEDS: MIRALAX *UNIT DOSE* 17GM PACKET PO SCH (09:00)
[2016-05-31] MEDS: MOM 30ML SUSPENSION UDC PO SCH (09:00)
[2016-05-31] MEDS: SENOKOT S TAB PO SCH ×2 (10:01→20:19)
[2016-05-31] MEDS: TAMSULOSIN 0.4 MG CAP PO SCH (10:03)
[2016-05-31] MEDS: PANTOPRAZOLE 40MG TAB (PROTONIX) PO SCH (10:03)
[2016-05-31] MEDS: ASPIRIN 81 MG ENTERIC TAB PO SCH (10:03)
[2016-05-31] MEDS: CHLORTHALIDONE 25 MG TAB PO SCH (10:04)
[2016-05-31] MEDS: CLOPIDOGREL 75 MG TAB PO SCH (12:23)
[2016-05-31 14:00] VITALS: BP 138/79
[2016-05-31] MEDS ORDERED: diphenhydrAMINE 12.5MG/5ML ELIXIR UDC PO PRN (14:00)
[2016-05-31] MEDS: HYDROCORTISONE 1% CREAM 30 GM TOP SCH ×2 (14:33→20:19)
--- NOTE | 2016-05-31 16:53 | IPNPDOC ---
Subjective Date Seen The patient was seen on 05/31/16. Subjective Chief Complaint/HPI The patient is a 76-year-old male admitted with a reason for visit of Arthritis Left Knee. Events since last encounter no acute events overnight, reported left knee surgical site improved. Denied f/c /abd pain/n/v. Objective Physical Examination General Exam: Positive: Alert, Cooperative, No Acute Distress Eye Exam: Positive: PERRLA ENT Exam: Positive: Atraumatic, Mucous membr. moist/pink Neck Exam: Positive: Supple Chest Exam: Positive: Clear to auscultation, Normal air movement Heart Exam: Positive: Normal S1, Normal S2, Rate Normal Abdomen Exam: Positive: Normal bowel sounds, Soft, Negative: Hepatospenomegaly, Tenderness Extremity Exam: Positive: Other (dp/pt 2+ b/l ), Negative: Clubbing, Cyanosis, Edema Assessment /Plan Problems (1) Osteoarthritis Status: Acute Problem Text: s/p left TKA 05/26, admitted under ortho, gary-op management, wound, pain med and dvt ppx as per ortho, was on heparin SQ for DVT ppx, now on asa, plavix and early ambulation PT and PM&R eval as per ortho (2) CVA (cerebral vascular accident) Status: Chronic Problem Text: no residual def, c/w asa, restart plavix monitor BP (3) HTN (hypertension) Status: Chronic Problem Text: c/w bp meds (4) BPH (benign prostatic hyperplasia) Status: Chronic Problem Text: flomax (5) HLD (hyperlipidemia) Status: Chronic Problem Text: outpatient f/u, diet modification Plan/VTE VTE Prophylaxis Ordered?: Yes (on asa and plavix and early ambulate and venodyne) Disposition ALC by orthopedic, pending PT VS, I&O, 24H, Fishbone Vital Signs/I&O Vital Signs Date Time Temp Pulse Resp B/P Pulse Ox O2 Delivery O2 Flow Rate FiO2 05/31/16 12:54 18 05/31/16 06:24 Room Air 05/31/16 06:00 96.2 76 144/68 96 05/27/16 06:00 2.0 I&O- Last 24 Hours up to 6 AM 05/31/16 06:00 Intake Total 1060 ml Output Total 550 ml Balance 510 ml Laboratory Data 24H LABS Laboratory Tests 2 05/31/16 12:08: Bedside Glucose (Misc Panel) 104 AIMEE KNOWLES MD May 31, 2016 16:53
[2016-05-31 22:00] VITALS: BP 147/71
[2016-06-01] MEDS: traMADol 50 MG TAB PO PRN ×4 (00:54→17:06)
[2016-06-01 06:00] VITALS: BP 131/72
[2016-06-01 06:33] LABS: MEAN CORPUSCULAR HEMOGLOBIN 29.2 pg (27.0-33.0); MEAN CORPUSCULAR HGB CONC 33.5 g/dl (32.0-36.5); MEAN CORPUSCULAR VOLUME 87.2 fl (80.0-96.0); RED CELL DISTRIBUTION WIDTH 12.3 % (11.5-14.5); WHITE BLOOD COUNT 7.8 K/mm3 (4.0-10.0)
[2016-06-01 06:43] LABS: ANION GAP 9 MEQ/L (8-16); BLOOD UREA NITROGEN 15 MG/DL (7-18); CALCIUM LEVEL 8.5 MG/DL (8.8-10.2); CARBON DIOXIDE LEVEL 32 MEQ/L (21-32); CHLORIDE LEVEL 92 MEQ/L (98-107); CREATININE FOR GFR 0.82 MG/DL (0.70-1.30); GLOMERULAR FILTRATION RATE > 60.0 (>42); GLUCOSE, FASTING 108 MG/DL (83-110); MAGNESIUM LEVEL 2.3 MG/DL (1.8-2.4); POTASSIUM SERUM 2.8 MEQ/L (3.5-5.1); SODIUM LEVEL 133 MEQ/L (136-145)
[2016-06-01] MEDS ORDERED: POTASSIUM CHLORIDE 10 MEQ SR TABLET PO ONE ×2 (07:00→07:15)
[2016-06-01] MEDS: MOM 30ML SUSPENSION UDC PO SCH (08:05)
[2016-06-01] MEDS: MIRALAX *UNIT DOSE* 17GM PACKET PO SCH (08:05)
[2016-06-01] MEDS: PANTOPRAZOLE 40MG TAB (PROTONIX) PO SCH (08:14)
[2016-06-01] MEDS: CHLORTHALIDONE 25 MG TAB PO SCH (08:14)
[2016-06-01] MEDS: ASPIRIN 81 MG ENTERIC TAB PO SCH (08:14)
[2016-06-01] MEDS: TAMSULOSIN 0.4 MG CAP PO SCH (08:14)
[2016-06-01] MEDS: HYDROCORTISONE 1% CREAM 30 GM TOP SCH ×2 (08:14→20:49)
[2016-06-01] MEDS: SENOKOT S TAB PO SCH ×2 (08:14→20:38)
[2016-06-01] MEDS ORDERED: POTASSIUM CHLORIDE 10 MEQ SR TABLET PO SCH (09:00)
--- NOTE | 2016-06-01 11:58 | ECGEPIP ---
Stationary ECG Study [facility] Test Date: 2016-06-01 Pat Name: ROSEMARY BANUELOS Department: Room: [place] [address] Gender: M Transport Company Manager: FLORENTINO : 1940 Requested By: AIMEE KNOWLES Order Number: [id number] Reading MD: Duong Prasad Measurements Intervals [place] Rate: 79 P: -9 IN: 134 QRS: -24 QRSD: 109 T: 19 QT: 399 QTc: 457 Interpretive Statements SINUS RHYTHM BORDERLINE LEFT AXIS DEVIATION Comparison tracing not on file Electronically Signed On 06-01-2016 11:57:35 EST by Duong Prasad
[2016-06-01] MEDS: CLOPIDOGREL 75 MG TAB PO SCH (13:00)
[2016-06-01 14:00] VITALS: BP 136/75
--- NOTE | 2016-06-01 14:23 | IPNPDOC ---
Subjective Date Seen The patient was seen on 06/01/16. Subjective Chief Complaint/HPI The patient is a 76-year-old male admitted with a reason for visit of Arthritis Left Knee. Events since last encounter No acute events overnight. Denied cp/abd pain/constipation/diarrhea/n/v/sob Objective Physical Examination General Exam: Positive: Alert, Cooperative, No Acute Distress Eye Exam: Positive: PERRLA ENT Exam: Positive: Atraumatic, Mucous membr. moist/pink Neck Exam: Positive: Supple Chest Exam: Positive: Clear to auscultation, Normal air movement Heart Exam: Positive: Normal S1, Normal S2, Rate Normal Abdomen Exam: Positive: Normal bowel sounds, Soft, Negative: Hepatospenomegaly, Tenderness Extremity Exam: Positive: Other (dp/pt 2+ b/l ), Negative: Clubbing, Cyanosis, Edema Assessment /Plan Problems (1) Osteoarthritis Status: Acute Problem Text: s/p left TKA 05/26, admitted under ortho, gary-op management, wound, pain med and dvt ppx as per ortho, was on heparin SQ for DVT ppx, now on asa, plavix and early ambulation PT and PM&R eval as per ortho (2) CVA (cerebral vascular accident) Status: Chronic Problem Text: no residual def, c/w asa, restart plavix monitor BP (3) HTN (hypertension) Status: Chronic Problem Text: c/w bp meds (4) BPH (benign prostatic hyperplasia) Status: Chronic Problem Text: flomax (5) HLD (hyperlipidemia) Status: Chronic Problem Text: outpatient f/u, diet modification (6) Hypokalemia Status: Acute Problem Text: supplement K, f/u k and mag monitor, ekg reviewed Plan/VTE VTE Prophylaxis Ordered?: Yes (on asa and plavix and early ambulate and venodyne) Disposition PT and primary surgicla team VS, I&O, 24H, Fishbone Vital Signs/I&O Vital Signs Date Time Temp Pulse Resp B/P Pulse Ox O2 Delivery O2 Flow Rate FiO2 06/01/16 13:31 18 06/01/16 06:58 Room Air 06/01/16 06:00 97.4 79 131/72 95 05/27/16 06:00 2.0 I&O- Last 24 Hours up to 6 AM 06/01/16 06:00 Intake Total 1920 ml Output Total 400 ml Balance 1520 ml Laboratory Data 24H LABS Laboratory Tests 2 06/01/16 06:12: Anion Gap 9, Blood Urea Nitrogen 15, Creatinine 0.82, Sodium Level 133L, Potassium Level 2.8*L, Chloride Level 92L, Carbon Dioxide Level 32, Calcium Level 8.5L, Glomerular Filtration Rate > 60.0, Magnesium Level 2.3 CBC/BMP Laboratory Tests 06/01/16 06:12 Calcium Level 8.5 L, Red Blood Count 3.97 L, Mean Corpuscular Volume 87.2, Mean Corpuscular Hemoglobin 29.2, Mean Corpuscular Hemoglobin Concent 33.5, Red Cell Distribution Width 12.3 AIMEE KNOWLES MD Jun 01, 2016 14:23
[2016-06-01] MEDS ORDERED: NORCO, ANEXSIA 5/325MG TABLET (HYDROcodone/ACETAMINOPHEN) PO PRN (18:15)
[2016-06-01] MEDS: POTASSIUM CHLORIDE 10 MEQ SR TABLET PO SCH (20:38)
[2016-06-01] MEDS: NORCO, ANEXSIA 5/325MG TABLET (HYDROcodone/ACETAMINOPHEN) PO PRN (20:40)
[2016-06-01 22:00] VITALS: BP 140/75
[2016-06-02 00:25] LABS: MAGNESIUM LEVEL 2.2 MG/DL (1.8-2.4)
[2016-06-02 06:00] VITALS: BP 163/75
[2016-06-02] MEDS: NORCO, ANEXSIA 5/325MG TABLET (HYDROcodone/ACETAMINOPHEN) PO PRN (06:00)
[2016-06-02] MEDS ORDERED: VICO5TAB16 PO (06:22)
[2016-06-02 07:02] LABS: ANION GAP 9 MEQ/L (8-16); BLOOD UREA NITROGEN 13 MG/DL (7-18); CALCIUM LEVEL 8.5 MG/DL (8.8-10.2); CARBON DIOXIDE LEVEL 32 MEQ/L (21-32); CHLORIDE LEVEL 92 MEQ/L (98-107); CREATININE FOR GFR 0.83 MG/DL (0.70-1.30); GLOMERULAR FILTRATION RATE > 60.0 (>42); GLUCOSE, FASTING 131 MG/DL (83-110); POTASSIUM SERUM 3.3 MEQ/L (3.5-5.1); SODIUM LEVEL 133 MEQ/L (136-145)
[2016-06-02] MEDS ORDERED: POTA20TA PO (07:56)
[2016-06-02] MEDS ORDERED: LISI-542 PO (07:56)
--- NOTE | 2016-06-02 08:14 | ECGEPIP ---
Stationary ECG Study [facility] Test Date: 2016-06-02 Pat Name: ROSEMARY BANUELOS Department: Room: [place] [address] Gender: M Medical Detail Representative: CHON : 1940 Requested By: Raine Mahoney Order Number: [id number] Reading MD: Amanda Buchanan Measurements Intervals [place] Rate: 77 P: 8 MS: 149 QRS: -26 QRSD: 109 T: 17 QT: 404 QTc: 460 Interpretive Statements SINUS RHYTHM Left axis deviation SIMILAR TO 06/01/16 Electronically Signed On 06-02-2016 8:14:30 EST by Amanda Buchanan
[2016-06-02] MEDS: MIRALAX *UNIT DOSE* 17GM PACKET PO SCH (08:31)
[2016-06-02] MEDS: MOM 30ML SUSPENSION UDC PO SCH (08:31)
[2016-06-02 08:32] VITALS: BP 163/75
[2016-06-02] MEDS: POTASSIUM CHLORIDE 10 MEQ SR TABLET PO SCH (08:32)
[2016-06-02] MEDS: PANTOPRAZOLE 40MG TAB (PROTONIX) PO SCH (08:32)
[2016-06-02] MEDS: TAMSULOSIN 0.4 MG CAP PO SCH (08:32)
[2016-06-02] MEDS: ASPIRIN 81 MG ENTERIC TAB PO SCH (08:32)
[2016-06-02] MEDS: SENOKOT S TAB PO SCH (08:32)
[2016-06-02] MEDS: HYDROCORTISONE 1% CREAM 30 GM TOP SCH (08:33)
[2016-06-02] MEDS ORDERED: LISINOPRIL 5 MG TAB PO SCH (09:00)
--- NOTE | 2016-06-02 15:20 | IPNPDOC ---
Subjective Date Seen The patient was seen on 06/02/16. Subjective Chief Complaint/HPI The patient is a 76-year-old male admitted with a reason for visit of Arthritis Left Knee. Events since last encounter no acute events overnight. Denied f/c/cp/abd/pain/n/v/diarrhea Objective Physical Examination General Exam: Positive: Alert, Cooperative, No Acute Distress Eye Exam: Positive: PERRLA ENT Exam: Positive: Atraumatic, Mucous membr. moist/pink Neck Exam: Positive: Supple Chest Exam: Positive: Clear to auscultation, Normal air movement Heart Exam: Positive: Normal S1, Normal S2, Rate Normal Abdomen Exam: Positive: Normal bowel sounds, Soft, Negative: Hepatospenomegaly, Tenderness Extremity Exam: Positive: Other (dp/pt 2+ b/l ), Negative: Clubbing, Cyanosis, Edema Assessment /Plan Problems (1) Osteoarthritis Status: Acute Problem Text: s/p left TKA 05/26, admitted under ortho, gary-op management, wound, pain med and dvt ppx as per ortho, was on heparin SQ for DVT ppx, now on asa, plavix and early ambulation PT and PM&R eval as per ortho (2) CVA (cerebral vascular accident) Status: Chronic Problem Text: no residual def, c/w asa, restart plavix monitor BP (3) HTN (hypertension) Status: Chronic Problem Text: d/c diuretic started lisinopril given hypokalemia (4) BPH (benign prostatic hyperplasia) Status: Chronic Problem Text: flomax (5) HLD (hyperlipidemia) Status: Chronic Problem Text: outpatient f/u, diet modification (6) Hypokalemia Status: Acute Problem Text: supplement K, f/u k and mag monitor, ekg reviewed bp med changed Plan/VTE VTE Prophylaxis Ordered?: Yes (on asa and plavix and early ambulate and venodyne) Disposition dc as per primary team VS, I&O, 24H, Fishbone Vital Signs/I&O Vital Signs Date Time Temp Pulse Resp B/P Pulse Ox O2 Delivery O2 Flow Rate FiO2 06/02/16 11:03 18 06/02/16 08:32 163/75 06/02/16 06:00 97.2 87 94 Room Air 05/27/16 06:00 2.0 I&O- Last 24 Hours up to 6 AM 06/02/16 06:00 Intake Total 2160 ml Output Total 1750 ml Balance 410 ml Laboratory Data 24H LABS Laboratory Tests 2 06/01/16 23:51: Magnesium Level 2.2 06/02/16 06:25: Anion Gap 9, Blood Urea Nitrogen 13, Creatinine 0.83, Sodium Level 133L, Potassium Level 3.3L, Chloride Level 92L, Carbon Dioxide Level 32, Calcium Level 8.5L, Glomerular Filtration Rate > 60.0 CBC/BMP Laboratory Tests 06/01/16 23:51 06/02/16 06:25 Calcium Level 8.5 L AIMEE KNOWLES MD Jun 02, 2016 15:20
--- NOTE | 2016-06-05 09:11 | DSES ---
DATE OF ADMISSION: 05/26/2016 DATE OF DISCHARGE: 06/02/2016 ADMITTING DIAGNOSIS: Left knee arthritis. OTHER DIAGNOSES: 1. Hypertension with history of stroke. 2. Hyperlipidemia. 3. Benign prostatic hypertrophy (BPH). 4. Gastroesophageal reflux disease (GERD). DISCHARGE DIAGNOSIS: Left knee arthritis, status post left total knee arthroplasty. OPERATION PERFORMED: Left total knee arthroplasty. HISTORY: This is a pleasant 76-year-old male with progressively worsening left knee pain and stiffness. The patient was admitted for elective left knee replacement. HOSPITAL COURSE: The patient was admitted on the day of surgery and underwent a left knee arthroplasty, which was uneventful. He was slow to progress with physical therapy in the postoperative period, but his hospital course was without complications. The patient was up with physical therapy per the protocol, and his pain was controlled. On the day of discharge, the patient was doing well and was [facility]. He was weightbearing as tolerated, will move his knee to prevent stiffness, will use adjusted-dose Coumadin and thromboembolic deterrent (BÁRBARA) stockings for 30 days postoperatively for deep venous thrombosis (DVT) prophylaxis, and he will use oral medications for pain control. Also, he will follow in the office in 2 weeks for staple removal, will resume preoperative medications and diet, and he was given instructions for wound monitoring and activity limitations. Please refer to the medical record for further details.
== END 2016-06-02 11:15 | disposition home health service (06) | DRG 470 ==
LOC: M OR 06:04 → M MS5PR 12:05
PROVIDERS: ADMIT Orthopaedic Surgery; ATTEND Orthopaedic Surgery
PROC: 0SRD0J9 Replacement of Left Knee Joint with Synthetic Substitute, Cemented, Open Approach (ICD-10-PCS; principal; 2016-05-26 07:30)
DX: M17.12 Unilateral primary osteoarthritis, left knee (principal); Z79.899 Other long term (current) drug therapy; Z79.82 Long term (current) use of aspirin; N40.0 Benign prostatic hyperplasia without lower urinary tract symptoms; E78.5 Hyperlipidemia, unspecified; I10 Essential (primary) hypertension; K21.9 Gastro-esophageal reflux disease without esophagitis; Z86.718 Personal history of other venous thrombosis and embolism; E87.6 Hypokalemia

== ENCOUNTER → 2016-06-17 | Outpatient (REF) | payer OTHER ==
[~2016-06-17] MED LIST changes: -ACETAMINOPHEN 500 MG TAB PO ONE; +COUM1TAB17 PO; +LISI-542 PO; -LR 1,000 ML IV SCH; +PERC5TAB6 PO; +POTA20TA PO; -VANCOMYCIN HCL 1,000 MG, VIAL MATE ADAPTER 1 EACH in D5W 250 ML IV ONE; +VICO5TAB16 PO
[2016-06-17 14:54] LABS: ANION GAP 6 MEQ/L (8-16); BLOOD UREA NITROGEN 7 MG/DL (7-18); CALCIUM LEVEL 9.4 MG/DL (8.8-10.2); CARBON DIOXIDE LEVEL 33 MEQ/L (21-32); CHLORIDE LEVEL 100 MEQ/L (98-107); CREATININE FOR GFR 0.94 MG/DL (0.70-1.30); GLOMERULAR FILTRATION RATE > 60.0 (>42); GLUCOSE, FASTING 87 MG/DL (83-110); POTASSIUM SERUM 4.5 MEQ/L (3.5-5.1); SODIUM LEVEL 139 MEQ/L (136-145)
== END ==
LOC: M SHH 14:08
PROVIDERS: ATTEND Family Medicine
DX: I10 Essential (primary) hypertension (principal)

== ENCOUNTER → 2016-08-05 | Outpatient (REF) | payer OTHER | LOC: M SMT 16:54 | PROVIDERS: ATTEND Urology | DX: C67.9 Malignant neoplasm of bladder, unspecified (principal) ==

== ENCOUNTER → 2016-11-04 | Outpatient (REF) | payer OTHER ==
[~2016-11-04] MED LIST changes: +ACET650T3 PO; +ASPI1TAB15 PO; -ASPI81TA7 PO; +CIPR-249 PO; +FINA5TAB2 PO; -OXYB5TA PO; +OXYB5TAB10 PO; +PERC5TAB12 PO; -PERC5TAB6 PO; +PLAV1TAB2 PO; -PLAV75TA38 PO
== END ==
LOC: M SMT 17:22
PROVIDERS: ATTEND Urology
DX: C67.9 Malignant neoplasm of bladder, unspecified (principal)

== ENCOUNTER 2017-01-14 02:33 | Inpatient (IN) | payer OTHER ==
[~2017-01-14] VITALS: Ht 172.7 cm; Wt 91.8 kg
[~2017-01-14 02:33] MED LIST changes: -ACET650T3 PO; -CIPR-249 PO; -FINA5TAB2 PO
[2017-01-14] MEDS ORDERED: TRAM50TA2 PO (02:43)
[2017-01-14] MEDS ORDERED: MORPHINE 2 MG/ML 1ML SYRINGE IV ONE ×2 (03:15→06:15)
[2017-01-14 03:25] LABS: BASO # 0.1 10^3/uL (0.0-0.2); BASO % 0.5 % (0.0-1.0); EOS # 0.1 10^3/uL (0.0-0.50); EOS % 0.5 % (0.0-3.0); IMMATURE GRANULOCYTE % 0.5 % (0-0); LYMPH # 1.5 10^3/uL (1.5-4.5); LYMPH % 11.2 % (24.0-44.0); MEAN CORPUSCULAR HEMOGLOBIN 29.5 pg (27.0-33.0); MEAN CORPUSCULAR VOLUME 89.6 fl (80.0-96.0); MONO # 0.7 10^3/uL (0.0-0.8); MONO % 5.3 % (0.0-5.0); NEUTROPHILS # 10.8 10^3/uL (1.8-7.7); PLATELET COUNT, AUTOMATED 299 10^3/uL (150-450); RED CELL DISTRIBUTION WIDTH 13.2 % (11.5-14.5); WHITE BLOOD COUNT 13.2 10^3/uL (4.0-10.0)
[2017-01-14 03:29] LABS: INR 0.98
[2017-01-14 03:33] LABS: ANION GAP 6 MEQ/L (8-16); BLOOD UREA NITROGEN 18 MG/DL (7-18); CALCIUM LEVEL 9.5 MG/DL (8.8-10.2); CARBON DIOXIDE LEVEL 29 MEQ/L (21-32); CHLORIDE LEVEL 103 MEQ/L (98-107); GLOMERULAR FILTRATION RATE > 60.0 (>42); GLUCOSE, FASTING 142 MG/DL (83-110); POTASSIUM SERUM 3.8 MEQ/L (3.5-5.1); SODIUM LEVEL 138 MEQ/L (136-145)
[2017-01-14 03:58] LABS: MICROSCOPIC INDICATED? MAN YES (NO)
[2017-01-14 04:00] LABS: MICROSCOPIC EXAM UNSPUN
[2017-01-14 04:02] LABS: HYALINE CAST, URINE NONE SEEN /lpf (0-1); RBC, URINE TNTC /hpf (0-3); SQUAMOUS EPITHELIAL CELL URINE NONE SEEN /hpf (SMALL AMT)
[2017-01-14 04:03] LABS: BACTERIA, URINE NONE SEEN
[2017-01-14] MEDS: CIPROFLOXACIN 500 MG TAB PO SCH ×2 (06:00→18:05)
[2017-01-14] MEDS ORDERED: CIPROFLOXACIN 400 MG in APPROPRIATE DILUENT 1 EA IV ONE (06:00)
[2017-01-14] MEDS ORDERED: CIPR-249 PO (06:06)
[2017-01-14] MEDS ORDERED: ACETAMINOPHEN TAB 650MG DOSE (2X325MG) PO PRN (08:15)
[2017-01-14] MEDS ORDERED: ONDANSETRON 4MG/2ML VIAL (J2405) IV PRN (08:15)
[2017-01-14] MEDS ORDERED: ACET650T3 PO (08:41)
[2017-01-14] MEDS: oxyBUTYnin 5 MG TAB PO PRN ×2 (08:45→15:34)
[2017-01-14] MEDS: traMADol 50 MG TAB PO PRN ×2 (08:45→15:35)
--- NOTE | 2017-01-14 08:49 | SMCUROLCON ---
Urology Consultation General Date of Consultation 01/14/17 Reason For Consultation This patient is seen for Clot Retention Of Urine. 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 The patient noted the onset of gross hematuria and dysuria yesterday evening. Prior to that he was voiding fine. He notes that through the night he had a much harder time voiding, and ultimately was not able to empty his bladder completely. He denies chest pain or SOB. He denies fevers or chills. His last dose of plavix was yesterday. On arrival to the ED, a 3-way catheter was placed w/ return of a large amount of red urine and clots. Continuous bladder irrigation was then started. Past Medical History Medical History see HPI Surgical Hstory see HPI Medications Current Medications Current Medications Acetaminophen (Tylenol Tab) 650 mg Q4HP PRN PO MILD PAIN or TEMP > 101; Start 01/14/17 at 08:15; Stop 02/13/17 at 08:14 Aspirin (Ecotrin) 81 mg QHS PO ; Start 01/14/17 at 21:00; Stop 02/13/17 at 20: 59; Status UNV Lisinopril (Prinivil) 5 mg DAILY PO ; Start 01/14/17 at 09:00; Stop 02/13/17 at 08:59; Status UNV Omeprazole (PriLOSEC) 40 mg DAILY PO ; Start 01/14/17 at 09:00; Stop 02/13/17 at 08:59; Status UNV Ondansetron HCl (ZOFRAN INJection) 4 mg Q6HP PRN IV NAUSEA OR VOMITING; Start 01/14/17 at 08:15; Stop 02/13/17 at 08:14 Oxybutynin Chloride (Ditropan) 5 mg TIDP PRN PO BLADDER SPASM; Start 01/14/17 at 08:15; Stop 02/13/17 at 08:14 Sodium Chloride 1,000 ml @ 50 mls/hr Q20H IV ; Start 01/14/17 at 08:12; Stop 02/13/17 at 08:11 Tamsulosin HCl (Flomax) 0.4 mg QHS PO ; Start 01/14/17 at 21:00; Stop at 20:59; Status UNV Tramadol HCl (Ultram) 50 mg BIDP PRN PO pain; Start 01/14/17 at 08:15; Stop 01/21/17 at 08:14 Allergies Allergies: Coded Allergies: Penicillins (Verified Allergy, Mild, RASH, 06/29/12) Penicillins Cross Reactors (Verified Allergy, Mild, RASH, 06/29/12) Review of Systems Constitutional: Denies: Fever, Chills, Sweats, Weakness, Malaise Skin: Denies: Rash, Lesions, Breakdown, Nail Changes Pulmonary: Denies: Dyspnea, Cough Cardiovascular: Denies Chest Pain, Denies Palpitations Gastrointestinal: Denies: Nausea, Vomiting, Abdominal Pain Genitourinary: Reports: Dysuria, Hematuria, Retention Neurological: Denies: Weakness, Numbness, Incoordination, Change in Speech Psych: Reports: Mood Normal Physical Examination General Exam: Alert, No Acute Distress Chest Exam: Clear to auscultation Heart Exam: Rate Normal, Regular Rhythm Abdomen Exam: Soft Male Exam 3-way catheter in place on medium drip w/ dark pink urine draining Skin Exam: Nl turgor and temperature Psych Exam: Mental status NL, Mood NL Vital Signs/I&O Vital Signs Date Time Temp Pulse Resp B/P (MAP) Pulse Ox O2 Delivery O2 Flow Rate FiO2 01/14/17 07:28 97.3 85 18 95 Room Air I&O- Last 24 Hours up to 6 AM 01/15/17 05:59 Intake Total 200 ml Balance 200 ml Laboratory Data 24H Labs Laboratory Tests 2 01/14/17 03:01: Prothrombin Time 13.1, Prothromb Time International Ratio 0.98, Activated Partial Thromboplast Time 35.2, Bedside Urine Color (LAB) REDH, Bedside Urine Appearance (LAB) TURBIDH, Bedside Urine pH (LAB) 7.5, Bedside Urine Specific [place] (LAB 1.010, Bedside Urine Protein (LAB) 3+H, Bedside Urine Glucose (UA) NEGATIVE, Bedside Urine Ketones (LAB) NEGATIVE, Bedside Urine Blood POSITIVEH, Bedside Urine Nitrite (LAB) OBSCUREDH, Bedside Urine Bilirubin (LAB) NEGATIVE, Bedside Urine Urobilinogen (LAB) NORMAL, Bedside Urine Leukocyte Esterase (L OBSCUREDH, Urine WBC 1-3, Urine RBC TNTCH, Urine Squamous Epithelial Cells NONE SEEN, Urine Bacteria NONE SEEN, Urine Hyaline Casts NONE SEEN, Urine Sediment Examination UNSPUN 01/14/17 03:02: Immature Granulocyte % (Auto) 0.5H, White Blood Count 13.2H, Red Blood Count 5.01, Hemoglobin 14.8, Hematocrit 44.9, Mean Corpuscular Volume 89.6, Mean Corpuscular Hemoglobin 29.5, Mean Corpuscular Hemoglobin Concent 33.0, Red Cell Distribution Width 13.2, Platelet Count 299, Neutrophils (%) (Auto) 82.0H, Lymphocytes (%) (Auto) 11.2L, Monocytes (%) (Auto) 5.3H, Eosinophils (%) (Auto) 0.5, Basophils (%) (Auto) 0.5, Neutrophils # (Auto) 10.8H, Lymphocytes # (Auto) 1.5, Monocytes # (Auto) 0.7, Eosinophils # (Auto) 0.1, Basophils # (Auto) 0.1, Immature Granulocyte # (Auto) 0.1H, Nucleated Red Blood Cells % (auto) 0.0, Anion Gap 6L, Glomerular Filtration Rate > 60.0, Blood Urea Nitrogen 18, Creatinine 1.10, Sodium Level 138, Potassium Level 3.8, Chloride Level 103, Carbon Dioxide Level 29, Calcium Level 9.5 CBC/BMP Laboratory Tests 01/14/17 03:02 Red Blood Count 5.01, Mean Corpuscular Volume 89.6, Mean Corpuscular Hemoglobin 29.5, Mean Corpuscular Hemoglobin Concent 33.0, Red Cell Distribution Width 13.2 , Neutrophils (%) (Auto) 82.0 H, Lymphocytes (%) (Auto) 11.2 L, Monocytes (%) ( Auto) 5.3 H, Eosinophils (%) (Auto) 0.5, Basophils (%) (Auto) 0.5, Neutrophils # (Auto) 10.8 H, Lymphocytes # (Auto) 1.5, Monocytes # (Auto) 0.7, Eosinophils # (Auto) 0.1, Basophils # (Auto) 0.1, Calcium Level 9.5 Microbiology Microbiology 01/14/17 Urine Culture, Received Pending Assessment This is a 77 y/o BPH s/p cysto, button TURP, and TURBT on 01/18/16 w/ pathology notable for 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 His Hb is in normal range at 14.8. I suspect the hematuria is the result of a UTI and him being on plavix. When I saw him in the ER, I irrigated his bladder w/ 500cc of NS and got a moderate amount of clots out. He was then started back on CBI. Plan - admit for observation - continue CBI and titrate drip so that urine remains pink or clearer - f/u urine culture - continue cipro - oxybutynin prn bladder spasms - abmulate, SCDs - hold plavix - will continue ASA 81mg - regular diet LUPE CRAWFORD MD Jan 14, 2017 08:49
[2017-01-14] MEDS: OMEPRAZOLE 20 MG CAP PO SCH (09:25)
[2017-01-14] MEDS: LISINOPRIL 5 MG TAB PO SCH (09:26)
[2017-01-14] MEDS: NS 1,000 ML IV SCH ×2 (09:28→22:08)
[2017-01-14 14:35] VITALS: BP 124/62
[2017-01-14 18:00] VITALS: BP 118/52
[2017-01-14 22:00] VITALS: BP 154/65
[2017-01-14] MEDS: TAMSULOSIN 0.4 MG CAP PO SCH (22:08)
[2017-01-14] MEDS: ASPIRIN 81 MG ENTERIC TAB PO SCH (22:08)
[2017-01-15 02:00] VITALS: BP 121/61
[2017-01-15] MEDS: oxyBUTYnin 5 MG TAB PO PRN ×3 (03:27→19:20)
[2017-01-15] MEDS: CIPROFLOXACIN 500 MG TAB PO SCH ×2 (05:47→18:12)
[2017-01-15 06:00] VITALS: BP 121/62
[2017-01-15 06:10] LABS: MEAN CORPUSCULAR HEMOGLOBIN 29.6 pg (27.0-33.0); MEAN CORPUSCULAR VOLUME 89.8 fl (80.0-96.0); RED CELL DISTRIBUTION WIDTH 13.5 % (11.5-14.5)
[2017-01-15 06:23] LABS: ANION GAP 5 MEQ/L (8-16); BLOOD UREA NITROGEN 13 MG/DL (7-18); CALCIUM LEVEL 8.1 MG/DL (8.8-10.2); CARBON DIOXIDE LEVEL 29 MEQ/L (21-32); CHLORIDE LEVEL 107 MEQ/L (98-107); CREATININE FOR GFR 0.95 MG/DL (0.70-1.30); GLOMERULAR FILTRATION RATE > 60.0 (>42); GLUCOSE, FASTING 97 MG/DL (83-110); SODIUM LEVEL 141 MEQ/L (136-145)
[2017-01-15] MEDS: MORPHINE 2 MG/ML 1ML SYRINGE IV PRN ×3 (06:39→19:21)
[2017-01-15] MEDS: OMEPRAZOLE 20 MG CAP PO SCH (08:42)
--- NOTE | 2017-01-15 08:43 | IPNPDOC ---
Assessment/Plan Date Seen The patient was seen on 01/15/17. 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 He is still having a moderate amount of hematuria. CBI is still going and he occasionally needs manual irrigation to clear clots. I manually irrigated his bladder this morning and got a small amount of clots out. His Hb has trended down to 11.6 from 14.8 yesterday. This is partially due to hemodilution. His vitals are stable. Plan/VTE VTE Prophylaxis Ordered?: Yes VTE Exclusion Mechanical Proph: N/A:VTE Prophy Ordered Plan/Urinary Catheter Reason for insertion/continuin: Acute obstruct/retention Plan - change catheter out to a 22Fr 3-way catheter as this will drain better - continue CBI and titrate drip so that outflow is pink or clearer - manually irrigate as needed - continue cipro - f/u urine culture - CXR and EKG in case patient needs to go to OR tomorrow - turn off IVF - strict I/Os - SCDs - ambulate - recheck Hb this afternoon - regular diet (NPO at midnight for possible OR tomorrow) Subjective Review oF Systems Chief Complaint The patient is a 77-year-old male admitted with a reason for visit of Clot Retention Of Urine. Events since Last Encounter Patient required manual irrigation several times last night. Still noting a moderate amount of bladder spasms. Denies chest pain or SOB. No fevers or chills. Objective Physical Examination General Exam: Alert, Cooperative, No Acute Distress Skin Exam: Nl turgor and temperature Neuro Exam: Normal Speech Psych Exam: Mental status NL, Mood NL Other physical findings 16Fr 3-way catheter in place, w/ drip on high and draining light pink urine Vital Signs/I&O Vital Signs Date Time Temp Pulse Resp B/P (MAP) Pulse Ox O2 Delivery O2 Flow Rate FiO2 01/15/17 06:39 18 94 Room Air 01/15/17 06:00 98.9 75 121/62 (81) I&O- Last 24 Hours up to 6 AM 01/16/17 06:00 Intake Total 300 ml Output Total 1375 ml Balance -1075 ml Laboratory Data Labs 24H Laboratory Tests 2 10/19/17 05:35: Nucleated Red Blood Cells % (auto) 0.0, Anion Gap 5L, Glomerular Filtration Rate > 60.0, Blood Urea Nitrogen 13, Creatinine 0.95, Sodium Level 141, Potassium Level 4.0, Chloride Level 107, Carbon Dioxide Level 29, Calcium Level 8.1L CBC/BMP Laboratory Tests 01/15/17 05:35 Red Blood Count 3.92 L, Mean Corpuscular Volume 89.8, Mean Corpuscular Hemoglobin 29.6, Mean Corpuscular Hemoglobin Concent 33.0, Red Cell Distribution Width 13.5, Calcium Level 8.1 L Microbiology Microbiology 01/14/17 Urine Culture, Received Pending LUPE CRAWFORD MD Jan 15, 2017 08:43
[2017-01-15] MEDS: LISINOPRIL 5 MG TAB PO SCH (09:06)
[2017-01-15] MEDS ORDERED: LIDOCAINE 2% 5ML JELLY UROJET TOP ONE (09:15)
--- NOTE | 2017-01-15 09:39 | REP ---
PORTABLE CHEST: COMPARISON: 05/13/2016. There is no evidence of acute infiltrate. No pleural effusion is seen. The heart is normal in size. The mediastinal silhouette is unremarkable. The visualized osseous structures are intact. There is mild calcification of the thoracic aorta. IMPRESSION: No acute pulmonary disease. Signed by Andres Israel MD 01/15/2017 05:33 P
[2017-01-15 10:00] VITALS: BP 116/63
[2017-01-15] MEDS: traMADol 50 MG TAB PO PRN (10:58)
[2017-01-15 14:00] VITALS: BP 138/74
[2017-01-15 18:00] VITALS: BP 141/70
[2017-01-15] MEDS: TAMSULOSIN 0.4 MG CAP PO SCH (21:15)
[2017-01-15] MEDS: ASPIRIN 81 MG ENTERIC TAB PO SCH (21:15)
[2017-01-15 22:00] VITALS: BP 146/68
--- NOTE | 2017-01-15 22:46 | ECGEPIP ---
Stationary ECG Study [facility] Test Date: 2017-01-15 Pat Name: ROSEMARY BANUELOS Department: Room: [place] [address] Gender: M Freight Car Loader: JITENDRA : 1940 Requested By: LUPE Sevilla Order Number: [id number] Reading MD: Duong Brooke Measurements Intervals [place] Rate: 72 P: 4 MS: 156 QRS: -23 QRSD: 84 T: 18 QT: 386 QTc: 422 Interpretive Statements SINUS RHYTHM LEFT AXIS DEVIATION No significant change compared with 06/02/2016. Electronically Signed On 01-15-2017 22:46:02 EDT by Duong Brooke
[2017-01-16] VITALS (8 sets, daily range): BP systolic 110–140; BP diastolic 57–76
[2017-01-16] MEDS ORDERED: NS 1,000 ML IV SCH
[2017-01-16] MEDS: CIPROFLOXACIN 500 MG TAB PO SCH (05:34)
[2017-01-16 06:39] LABS: MEAN CORPUSCULAR HEMOGLOBIN 29.8 pg (27.0-33.0); MEAN CORPUSCULAR VOLUME 90.2 fl (80.0-96.0); PLATELET COUNT, AUTOMATED 204 10^3/uL (150-450); RED CELL DISTRIBUTION WIDTH 13.5 % (11.5-14.5); WHITE BLOOD COUNT 7.5 10^3/uL (4.0-10.0)
[2017-01-16 06:59] LABS: ANION GAP 7 MEQ/L (8-16); BLOOD UREA NITROGEN 12 MG/DL (7-18); CALCIUM LEVEL 8.7 MG/DL (8.8-10.2); CARBON DIOXIDE LEVEL 27 MEQ/L (21-32); CHLORIDE LEVEL 105 MEQ/L (98-107); CREATININE FOR GFR 1.01 MG/DL (0.70-1.30); GLOMERULAR FILTRATION RATE > 60.0 (>42); GLUCOSE, FASTING 99 MG/DL (83-110); POTASSIUM SERUM 3.9 MEQ/L (3.5-5.1); SODIUM LEVEL 139 MEQ/L (136-145)
--- NOTE | 2017-01-16 08:42 | IPNPDOC ---
Assessment/Plan Date Seen The patient was seen on 01/16/17. 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 His Hb is stable. His urine appears to be clearing up. The severity of his bleeding was likely related to him being on plavix. I recommended taking him to the OR today for csyto and fulguration, as I am concerned that if we do not find the source of bleeding, he will likely start bleeding again once he resumes plavix. Plan/VTE VTE Prophylaxis Ordered?: Yes VTE Exclusion Mechanical Proph: N/A:VTE Prophy Ordered Plan/Urinary Catheter Reason for insertion/continuin: Acute obstruct/retention Plan - informed consent signed for cystoscopy, fulguration of bleeding - continue CBI - continue cipro - hold plavix - cont ASA 81mg - NPO - plan for OR today Subjective Review oF Systems Chief Complaint The patient is a 77-year-old male admitted with a reason for visit of Clot Retention Of Urine. Events since Last Encounter No acute events o/n. Good pain control. Only needed to be manually irrigated once last night. Patient still having a moderate amount of bladder spasms. Objective Physical Examination General Exam: Alert, Cooperative, No Acute Distress Chest Exam: Clear to auscultation Heart Exam: Positive: Rate Normal, Regular Rhythm Skin Exam: Nl turgor and temperature Neuro Exam: Normal Speech Psych Exam: Mental status NL, Mood NL Other physical findings 22Fr 3-way catheter in place w/ irrigation on minimal drip, and urine clear Vital Signs/I&O Vital Signs Date Time Temp Pulse Resp B/P (MAP) Pulse Ox O2 Delivery O2 Flow Rate FiO2 01/16/17 06:00 98.0 78 18 125/68 (87) 98 Room Air I&O- Last 24 Hours up to 6 AM 01/17/17 06:00 Intake Total 0 ml Output Total 0 ml Balance 0 ml Laboratory Data Labs 24H Laboratory Tests 2 01/16/17 06:08: Nucleated Red Blood Cells % (auto) 0.0, Anion Gap 7L, Glomerular Filtration Rate > 60.0, Blood Urea Nitrogen 12, Creatinine 1.01, Sodium Level 139, Potassium Level 3.9, Chloride Level 105, Carbon Dioxide Level 27, Calcium Level 8.7L CBC/BMP Laboratory Tests 01/15/17 14:56 01/16/17 06:08 Red Blood Count 3.79 L, Mean Corpuscular Volume 90.2, Mean Corpuscular Hemoglobin 29.8, Mean Corpuscular Hemoglobin Concent 33.0, Red Cell Distribution Width 13.5, Calcium Level 8.7 L Microbiology Microbiology 01/14/17 Urine Culture - Final, Complete LUPE CRAWFORD MD Jan 16, 2017 08:42
[2017-01-16] MEDS: OMEPRAZOLE 20 MG CAP PO SCH (09:02)
[2017-01-16] MEDS: LISINOPRIL 5 MG TAB PO SCH (09:04)
[2017-01-16] MEDS ORDERED: MIDAZOLAM INJ 2 MG/2 ML VIAL (J2250) As Ordered ONE (17:25)
[2017-01-16] MEDS ORDERED: fentaNYL 100 MCG/2 ML INJECTION (J3010) As Ordered ONE ×2 (17:25→18:59)
[2017-01-16] MEDS ORDERED: LIDOCAINE 2% INJ 100 MG/5 ML SDV (FOR ANES.) As Ordered ONE (17:26)
[2017-01-16] MEDS ORDERED: PROPOFOL 200 MG/20 ML VIAL As Ordered ONE (17:26)
[2017-01-16] MEDS ORDERED: METOCLOPRAMIDE INJ 10MG/2ML VIAL (J2765) As Ordered ONE (17:26)
[2017-01-16] MEDS ORDERED: ONDANSETRON 4MG/2ML VIAL (J2405) As Ordered ONE (17:26)
[2017-01-16] MEDS ORDERED: LevoFLOXacin(LEVAQUIN)500 MG/100 ML BAG (J1956) As Ordered ONE (17:55)
[2017-01-16] MEDS ORDERED: LevoFLOXacin IV 500 MG in APPROPRIATE DILUENT 1 EA IV ONE (18:00)
[2017-01-16] MEDS ORDERED: LIDOCAINE 2% 5ML JELLY UROJET As Ordered ONE (18:07)
[2017-01-16] MEDS ORDERED: LR 1,000 ML IV SCH (19:00)
[2017-01-16] MEDS ORDERED: METOCLOPRAMIDE INJ 10MG/2ML VIAL (J2765) IV PRN (19:00)
[2017-01-16] MEDS ORDERED: MEPERIDINE INJ 25 MG/ML VIAL (J2175) IV PRN (19:00)
[2017-01-16] MEDS ORDERED: ONDANSETRON 4MG/2ML VIAL (J2405) IV PRN (19:00)
[2017-01-16] MEDS ORDERED: PERCOCET 5MG/325MG TAB PO PRN (19:00)
[2017-01-16] MEDS ORDERED: fentaNYL 100 MCG/2 ML INJECTION (J3010) IV PRN (19:00)
[2017-01-16] MEDS ORDERED: PERCOCET 5MG/325MG TAB As Ordered ONE (19:16)
[2017-01-16] MEDS: ASPIRIN 81 MG ENTERIC TAB PO SCH (21:09)
[2017-01-16] MEDS: TAMSULOSIN 0.4 MG CAP PO SCH (21:10)
[2017-01-17 00:20] VITALS: BP 113/57
[2017-01-17 01:40] VITALS: BP 115/57
[2017-01-17] MEDS: traMADol 50 MG TAB PO PRN (01:55)
[2017-01-17 04:55] VITALS: BP 112/58
[2017-01-17 06:06] LABS: MEAN CORPUSCULAR HEMOGLOBIN 29.8 pg (27.0-33.0); MEAN CORPUSCULAR VOLUME 90.2 fl (80.0-96.0); PLATELET COUNT, AUTOMATED 207 10^3/uL (150-450); RED CELL DISTRIBUTION WIDTH 13.2 % (11.5-14.5); WHITE BLOOD COUNT 8.3 10^3/uL (4.0-10.0)
[2017-01-17 06:27] LABS: ANION GAP 7 MEQ/L (8-16); BLOOD UREA NITROGEN 15 MG/DL (7-18); CALCIUM LEVEL 8.3 MG/DL (8.8-10.2); CARBON DIOXIDE LEVEL 28 MEQ/L (21-32); CHLORIDE LEVEL 103 MEQ/L (98-107); CREATININE FOR GFR 0.96 MG/DL (0.70-1.30); GLOMERULAR FILTRATION RATE > 60.0 (>42); GLUCOSE, FASTING 94 MG/DL (83-110); POTASSIUM SERUM 3.9 MEQ/L (3.5-5.1); SODIUM LEVEL 138 MEQ/L (136-145)
[2017-01-17 08:51] VITALS: BP 113/58
[2017-01-17] MEDS: OMEPRAZOLE 20 MG CAP PO SCH (08:51)
[2017-01-17] MEDS: LISINOPRIL 5 MG TAB PO SCH (08:51)
[2017-01-17 10:00] VITALS: BP 112/56
--- NOTE | 2017-01-17 17:30 | DSES ---
DATE OF ADMISSION: 01/15/2017 DATE OF DISCHARGE: 01/17/2017 REASON FOR ADMISSION: Urinary clot retention. HISTORY OF PRESENT ILLNESS: The patient is a 77-year-old gentleman with a history of benign prostatic hypertrophy (BPH), status post a button transurethral resection of the prostate (TURP) and transurethral resection of bladder tumor (TURBT) and 01/18/[address] 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 The patient has been on Plavix for a history of see cardiovascular disease (CVD), and he presented to the emergency room (ER) on January 14 with gross hematuria and difficulty voiding. He was placed on continuous bladder irrigation. A urine culture had remained negative, and the bleeding continued. The patient's Plavix was discontinued. Dr. Enriquez brought him to the operating room last night and did find some irritation and bleeding at the base of the prostate, which he fulgurated. The patient has been crystal clear overnight without any further continuous bladder irrigation. It was decided to send him home. OBJECTIVE: He has had a low-grade temperature, but now it is 99. His blood pressure is 112/58, his pulse is 83, and his respiratory rate is 16. He has no costovertebral angle (CVA) tenderness. His abdomen is soft and nontender, and the Davis catheter is draining completely clear yellow urine. His extremities show no cyanosis, clubbing, or edema. LABORATORY DATA: His white blood count today is 8.3, and this is down from 13.2 on admission. His hemoglobin and hematocrit are 11/33.3, and his creatinine is stable at 0.96. The urine culture from January 14 came back with no growth. PLAN: 1. Discharge the patient now with the Davis catheter, and he will get a call from our office early next week in probably undergo a fill and pull on Thursday if the urine remains clear. 2. Plavix most likely will be started within the next several days if the urine remains clear.
--- NOTE | 2017-01-19 17:49 | RO ---
DATE OF PROCEDURE: 01/16/2017 PREOPERATIVE DIAGNOSIS: Gross hematuria. POSTOPERATIVE DIAGNOSIS: Gross hematuria. OPERATIVE PROCEDURE: Cystoscopy, transurethral fulguration of prostatic urethral bleeding. SURGEON: Dom Enriquez MD ENTRY LEVEL ELECTRICIAN: None ANESTHESIA: Monitored anesthesia care (MAC). OPERATIVE INDICATIONS: This is a 77-year-old male with a history of Button transurethral electrovaporization fulguration of the prostate several months ago. He acutely had an onset of gross hematuria a few days ago, along with burning with urination. He presented to the emergency room. He was in clot retention. He was then brought into the hospital and kept on continuous bladder irrigation. His Plavix was held. Given the concern that he might start back bleeding again once the Plavix was started, he was brought to the operating room today to try to confirm the source of bleeding. DESCRIPTION OF OPERATION: The patient was brought to the operating room and MAC anesthesia was administered. Prophylactic antibiotics were infused. He was then placed in the dorsal lithotomy position and prepped and draped in the usual sterile fashion. At this point a bladder resectoscope inserted into the urethral meatus and advanced to the bladder using the visual obturator. The bladder was then thoroughly examined and other than some bullous edema at the base of the bladder no abnormalities were seen. Of note within the prostatic urethra at 6-o'clock right at the bladder neck, there did appear to be a raw area that was likely the source of bleeding. This area was thoroughly cauterized. Once I was satisfied that there were no other area of potential source of bleeding, the Button resectoscope was removed and an #18-Armenian Davis catheter was inserted into the bladder and the balloon was filled with 10 mL of sterile water. The catheter was then connected to gravity drainage, and this marked the conclusion of the procedure. The patient was then taken out of the dorsal lithotomy position, awakened from anesthesia and transported to the recovery room in stable condition. ESTIMATED BLOOD LOSS: 0 mL. COMPLICATIONS: None. SPECIMENS: None. PLAN: The patient will be go back up to his room. Assuming his urine remains clear overnight he will be discharged home tomorrow with a catheter in place. The plan will be to followup at the clinic in one week. ERICA
== END 2017-01-17 12:30 | disposition home or self-care (01) | DRG 669 ==
LOC: M ED 02:33 → M ED INP 08:12 → M MSPAV 14:36 → OBSVTOIN 01-15 10:49
PROVIDERS: ADMIT Urology; ATTEND Urology
PROC: 0T5C8ZZ Destruction of Bladder Neck, Via Natural or Artificial Opening Endoscopic (ICD-10-PCS; principal; 2017-01-16 08:33)
DX: N32.89 Other specified disorders of bladder (principal); D68.32 Hemorrhagic disorder due to extrinsic circulating anticoagulants; R31.0 Gross hematuria; R33.9 Retention of urine, unspecified; Z79.82 Long term (current) use of aspirin; Z79.899 Other long term (current) drug therapy; Z88.0 Allergy status to penicillin; Z79.02 Long term (current) use of antithrombotics/antiplatelets

== ENCOUNTER 2017-02-04 15:44 | Inpatient (IN) | payer OTHER ==
[~2017-02-04] VITALS: Ht 172.7 cm; Wt 91.8 kg
[~2017-02-04 15:44] MED LIST changes: +ACET650T3 PO; +CIPR-249 PO
[2017-02-04] MEDS ORDERED: NS 500 ML IV ONE (18:30)
[2017-02-04 19:17] LABS: INR 0.89
[2017-02-04 19:18] LABS: BASO # 0.1 10^3/uL (0.0-0.2); BASO % 0.7 % (0.0-1.0); EOS # 0.1 10^3/uL (0.0-0.50); EOS % 1.8 % (0.0-3.0); IMMATURE GRANULOCYTE % 0.3 % (0-0); LYMPH # 1.8 10^3/uL (1.5-4.5); LYMPH % 25.2 % (24.0-44.0); MEAN CORPUSCULAR HEMOGLOBIN 29.5 pg (27.0-33.0); MEAN CORPUSCULAR HGB CONC 32.2 g/dl (32.0-36.5); MEAN CORPUSCULAR VOLUME 91.5 fl (80.0-96.0); MONO # 0.6 10^3/uL (0.0-0.8); MONO % 8.5 % (0.0-5.0); NEUTROPHILS # 4.5 10^3/uL (1.8-7.7); NEUTROPHILS % 63.5 % (36.0-66.0); PLATELET COUNT, AUTOMATED 290 10^3/uL (150-450); RED CELL DISTRIBUTION WIDTH 13.5 % (11.5-14.5); WHITE BLOOD COUNT 7.1 10^3/uL (4.0-10.0)
[2017-02-04 19:32] LABS: ANION GAP 8 MEQ/L (8-16); BLOOD UREA NITROGEN 15 MG/DL (7-18); CALCIUM LEVEL 9.3 MG/DL (8.8-10.2); CARBON DIOXIDE LEVEL 29 MEQ/L (21-32); CHLORIDE LEVEL 103 MEQ/L (98-107); CREATININE FOR GFR 0.93 MG/DL (0.70-1.30); GLOMERULAR FILTRATION RATE > 60.0 (>42); GLUCOSE, FASTING 93 MG/DL (83-110); POTASSIUM SERUM 4.2 MEQ/L (3.5-5.1); SODIUM LEVEL 140 MEQ/L (136-145)
[2017-02-04] MEDS ORDERED: ISOVUE-370 76% 100ML VIAL (Q9967) As Ordered ONE (19:35)
--- NOTE | 2017-02-04 21:20 | REPUSA ---
CLINICAL HISTORY: Hematuria. TECHNIQUE: CT abdomen and pelvis following administration of IV contrast. Total DLP 663.4 mGy*cm COMPARISON: May 10, 2011. CT ABDOMEN WITH CONTRAST: Lung bases: No lung base infiltrate or effusion. Stomach: Small hiatal hernia noted. Liver: No intrahepatic ductal dilation. Gallbladder: Normally distended. Pancreas: No pancreatic duct dilation. Bowel loops: Nondistended. Spleen: 13 cm length. 1.4 cm cyst. Adrenals: Normal size. Kidneys: No hydronephrosis. Aorta: Normal caliber.Calcifications are noted within the vessels indicating an element of arterioscl erosis. Peritoneum: No free air. CT PELVIS WITH CONTRAST: Colon: Multiple colonic diverticula without evidence of diverticulitis. Appendix: Normal appendix is seen. Bladder: Normally distended. There is hemorrhage within the bladder which appears to emanate from the region of the prostate or the posterior bladder wall. Pelvic organs: The prostate is enlarged, measuring 5.8 cm diameter. Peritoneum: No fluid. Inguinal: Fatty bilateral inguinal hernias, right greater than left. Lumbar spine: Degenerative spondylotic changes most pronounced at L3-4, L4-5 and L5-S1. There is grad e 1 anterolisthesis of L4 due to severe facet arthrosis. IMPRESSION: 1. Bladder hemorrhage which appears to emanate from the prostate or the posterior bladder wall. 2. Splenomegaly. 3. Advanced lumbar spondylosis with L4 anterolisthesis.
[2017-02-04 21:35] LABS: MICROSCOPIC INDICATED? MAN YES (NO)
[2017-02-04 21:51] LABS: RBC, URINE TNTC /hpf (0-3); SQUAMOUS EPITHELIAL CELL URINE NONE SEEN /hpf (SMALL AMT); WBC, URINE TNTC /hpf (0-3)
[2017-02-04 21:54] LABS: HYALINE CAST, URINE NONE SEEN /lpf (0-1)
[2017-02-04 21:55] LABS: MICROSCOPIC EXAM PERFORMED
--- NOTE | 2017-02-04 22:43 | ED PDOC ---
Post-Departure Follow-Up CALLED AND SPOKE WITH DR. PEARSON AGAIN AT THIS TIME. ADVISED HE WILL BE IN TO SEE THIS PT. NURSING STAFF IN WITH PT FOR BLADDER IRRIGATION AND ALREADY CLEARED 1200CC OF DARK, THICK, RED BLOOD WITH CLOTS. RADHA IRAHETA PA-C Feb 04, 2017 22:43
[2017-02-04] MEDS ORDERED: NS 1,000 ML IV ONE (22:45)
[2017-02-04 23:10] LABS: BASO # 0.1 10^3/uL (0.0-0.2); BASO % 0.9 % (0.0-1.0); EOS # 0.1 10^3/uL (0.0-0.50); EOS % 1.9 % (0.0-3.0); IMMATURE GRANULOCYTE % 0.3 % (0-0); LYMPH % 31.2 % (24.0-44.0); MEAN CORPUSCULAR HEMOGLOBIN 29.7 pg (27.0-33.0); MEAN CORPUSCULAR HGB CONC 32.6 g/dl (32.0-36.5); MONO # 0.6 10^3/uL (0.0-0.8); MONO % 8.6 % (0.0-5.0); NEUTROPHILS # 3.7 10^3/uL (1.8-7.7); NEUTROPHILS % 57.1 % (36.0-66.0); PLATELET COUNT, AUTOMATED 249 10^3/uL (150-450); RED CELL DISTRIBUTION WIDTH 13.5 % (11.5-14.5); WHITE BLOOD COUNT 6.5 10^3/uL (4.0-10.0)
[2017-02-04 23:26] LABS: PLT CLUMPS? POS FLAG; POS COUNT POS FLAG
[2017-02-04 23:27] LABS: ADD MANUAL DIFFER NO; DIFF SLIDE NUMBER 349
[2017-02-05] VITALS (7 sets, daily range): BP systolic 137–156; BP diastolic 69–90
[2017-02-05] MEDS ORDERED: LISI-542 PO (00:05)
[2017-02-05] MEDS ORDERED: TYLE650T35 PO ×2 (00:05)
[2017-02-05] MEDS ORDERED: TRAM50TA2 PO (00:05)
[2017-02-05] MEDS ORDERED: FLOM5CAP PO (00:05)
[2017-02-05] MEDS ORDERED: ASPI1TAB15 PO (00:05)
[2017-02-05] MEDS ORDERED: NEXI40CA PO (00:05)
[2017-02-05] MEDS ORDERED: MORPHINE 4 MG/ML 1ML SYRINGE IV PRN (01:15)
[2017-02-05] MEDS ORDERED: ONDANSETRON 4MG/2ML VIAL (J2405) IV PRN ×2 (01:15→15:15)
[2017-02-05] MEDS: KCL 20MEQ IN D5/0.45NS 1000ML 1,000 ML IV SCH ×2 (01:42→11:15)
[2017-02-05] MEDS ORDERED: PANTOPRAZOLE 40MG INJ (PROTONIX) (C9113) IV SCH (02:00)
[2017-02-05] MEDS ORDERED: LevoFLOXacin IV 500 MG in APPROPRIATE DILUENT 1 EA IV SCH (03:00)
[2017-02-05] MEDS ORDERED: LISINOPRIL 5 MG TAB PO SCH (09:00)
--- NOTE | 2017-02-05 09:55 | SMCUROLCON ---
Urology Consultation General Date of Consultation 02/05/17 Reason For Consultation This patient is seen for Recurrent Hematuria. History of Present Illness This is a 77 y/o BPH s/p cysto, button TURP, and TURBT on 01/18/16 w/ pathology notable for low grade UC vs PUNLMP, who presented to the ER last night for recurrent gross hematuria. He notes that he started having on and off hematuria a few days ago. Last night his urine looked like hortencia blood and he ultimately could not void any more due to retention. A CT scan was obtained in the ER that was notable for a large clot in the bladder. CBI was started in the ER last night and is still going this morning. The patient denies the catheter clotting off overnight. He notes that he resumed taking his plavix about 10 days ago but stopped taking it about 7 days ago due to the onset of hematuria. He denies dysuria. He denies abdominal or flank pain. He denies fevers or chills. Past Medical History Medical History see HPI Surgical Hstory see HPI Medications Current Medications Current Medications Home Med (Med Rec Complete!) ASDIRECTED XX ; Start 02/05/17 at 00:15; Stop 02/05/17 at 00:16; Status DC Levofloxacin 500 mg/IV Miscellaneous Supplies 100 ml @ 100 mls/hr Q24H IV Last administered on 02/05/17 03:00; Start 02/05/17 at 03:00; Stop 02/12/17 at 02:59 Lisinopril (Prinivil) 5 mg DAILY PO Last administered on 02/05/17 08:06; Start 02/05/17 at 09:00; Stop 03/07/17 at 08:59 Morphine Sulfate (Morphine Sulfate Inj) 4 mg Q3HP PRN IV PAIN; Start 02/05/17 at 01:15; Stop 02/12/17 at 01:14 Ondansetron HCl (ZOFRAN INJection) 4 mg Q8HP PRN IV NAUSEA; Start 02/05/17 at 01:15; Stop 03/07/17 at 01:14 Pantoprazole Sodium (Protonix) 40 mg Q24H IV Last administered on 02/05/17 01: 42; Start 02/05/17 at 02:00; Stop 03/07/17 at 01:59 Potassium Chloride/Dextrose/ Sod Cl 1,000 ml @ 100 mls/hr Q10H IV Last administered on 02/05/17t 01:42; Start 02/05/17 at 01:15; Stop 03/07/17 at 01:14 Allergies Allergies: Coded Allergies: Penicillins (Verified Allergy, Mild, RASH, 06/29/12) Penicillins Cross Reactors (Verified Allergy, Mild, RASH, 06/29/12) Review of Systems General: Reports: Normal Appetite, Denies: Fatigue, Malaise Constitutional: Denies: Fever, Chills, Sweats, Weakness, Malaise Skin: Denies: Rash, Lesions, Breakdown, Nail Changes Pulmonary: Denies: Dyspnea, Cough Cardiovascular: Denies Chest Pain, Denies Palpitations Genitourinary: Reports: Hematuria, Retention Musculoskeletal: Denies: Neck Pain, Back Pain Neurological: Denies: Weakness, Numbness, Incoordination, Change in Speech Psych: Reports: Mood Normal, Denies: Anxiety, Depression Physical Examination General Exam: Alert, Cooperative, No Acute Distress Chest Exam: Clear to auscultation Heart Exam: Rate Normal, Regular Rhythm Abdomen Exam: Soft Male Exam 3-way catheter in place w/ CBI on low drip and light pink urine draining through the tubing Skin Exam: Nl turgor and temperature Neuro Exam: Normal Speech Psych Exam: Mental status NL, Mood NL Vital Signs/I&O Vital Signs Date Time Temp Pulse Resp B/P (MAP) Pulse Ox O2 Delivery O2 Flow Rate FiO2 02/05/17 08:06 140/77 02/05/17 08:00 Room Air 02/05/17 06:00 98.2 68 14 98 Laboratory Data 24H Labs Laboratory Tests 2 02/04/17 18:57: Immature Granulocyte % (Auto) 0.3H, White Blood Count 7.1, Red Blood Count 4.82 , Hemoglobin 14.2, Hematocrit 44.1, Mean Corpuscular Volume 91.5, Mean Corpuscular Hemoglobin 29.5, Mean Corpuscular Hemoglobin Concent 32.2, Red Cell Distribution Width 13.5, Platelet Count 290, Neutrophils (%) (Auto) 63.5, Lymphocytes (%) (Auto) 25.2, Monocytes (%) (Auto) 8.5H, Eosinophils (%) (Auto) 1.8, Basophils (%) (Auto) 0.7, Neutrophils # (Auto) 4.5, Lymphocytes # (Auto) 1.8, Monocytes # (Auto) 0.6, Eosinophils # (Auto) 0.1, Basophils # (Auto) 0.1, Immature Granulocyte # (Auto) 0.0, Nucleated Red Blood Cells % (auto) 0.0, Prothrombin Time 12.1L, Prothromb Time International Ratio 0.89, Activated Partial Thromboplast Time 31.3, Anion Gap 8, Glomerular Filtration Rate > 60.0, Blood Urea Nitrogen 15, Creatinine 0.93, Sodium Level 140, Potassium Level 4.2, Chloride Level 103, Carbon Dioxide Level 29, Calcium Level 9.3 02/04/17 20:57: Bedside Urine Color (LAB) REDH, Bedside Urine Appearance (LAB) TURBIDH, Bedside Urine pH (LAB) 8.0, Bedside Urine Specific [place] (LAB 1.035, Bedside Urine Protein (LAB) 3+H, Bedside Urine Glucose (UA) NEGATIVE, Bedside Urine Ketones ( LAB) NEGATIVE, Bedside Urine Blood POSITIVEH, Bedside Urine Nitrite (LAB) NEGATIVE, Bedside Urine Bilirubin (LAB) NEGATIVE, Bedside Urine Urobilinogen ( LAB) NORMAL, Bedside Urine Leukocyte Esterase (L POSITIVEH, Urine WBC TNTCH, Urine RBC TNTCH, Urine Squamous Epithelial Cells NONE SEEN, Urine Bacteria , Urine Hyaline Casts NONE SEEN, Urine Sediment Examination PERFORMED 02/04/17 22:57: Immature Granulocyte % (Auto) 0.3H, White Blood Count 6.5, Red Blood Count 4.24L , Hemoglobin 12.6L, Hematocrit 38.6L, Mean Corpuscular Volume 91.0, Mean Corpuscular Hemoglobin 29.7, Mean Corpuscular Hemoglobin Concent 32.6, Red Cell Distribution Width 13.5, Platelet Count 249, Neutrophils (%) (Auto) 57.1, Lymphocytes (%) (Auto) 31.2, Monocytes (%) (Auto) 8.6H, Eosinophils (%) (Auto) 1.9, Basophils (%) (Auto) 0.9, Neutrophils # (Auto) 3.7, Lymphocytes # (Auto) 2.0, Monocytes # (Auto) 0.6, Eosinophils # (Auto) 0.1, Basophils # (Auto) 0.1, Immature Granulocyte # (Auto) 0.0, Nucleated Red Blood Cells % (auto) 0.0 CBC/BMP Laboratory Tests 02/04/17 18:57 Red Blood Count 4.82, Mean Corpuscular Volume 91.5, Mean Corpuscular Hemoglobin 29.5, Mean Corpuscular Hemoglobin Concent 32.2, Red Cell Distribution Width 13.5 , Neutrophils (%) (Auto) 63.5, Lymphocytes (%) (Auto) 25.2, Monocytes (%) (Auto ) 8.5 H, Eosinophils (%) (Auto) 1.8, Basophils (%) (Auto) 0.7, Neutrophils # ( Auto) 4.5, Lymphocytes # (Auto) 1.8, Monocytes # (Auto) 0.6, Eosinophils # (Auto ) 0.1, Basophils # (Auto) 0.1, Calcium Level 9.3 02/04/17 22:57 Red Blood Count 4.24 L, Mean Corpuscular Volume 91.0, Mean Corpuscular Hemoglobin 29.7, Mean Corpuscular Hemoglobin Concent 32.6, Red Cell Distribution Width 13.5, Neutrophils (%) (Auto) 57.1, Lymphocytes (%) (Auto) 31.2, Monocytes (%) (Auto) 8.6 H, Eosinophils (%) (Auto) 1.9, Basophils (%) ( Auto) 0.9, Neutrophils # (Auto) 3.7, Lymphocytes # (Auto) 2.0, Monocytes # (Auto ) 0.6, Eosinophils # (Auto) 0.1, Basophils # (Auto) 0.1 Microbiology Microbiology 02/04/17 Urine Culture, Received Pending Assessment This is a 77 y/o BPH s/p cysto, button TURP, and TURBT on 01/18/16 w/ pathology notable for low grade UC vs PUNLMP, admitted w/ recurrent gross hematuria and clot retention. His Hb as of last night was 12.6. Vitals are stable. UA notable for TNTC RBCs and WBCs. He is currently receiving levaquin. Plan - continue CBI - plan to take to OR today for cysto, clot evacuation, possible b/l retrograde pyelograms, fulguration - will keep NPO until OR LUPE CRAWFORD MD Feb 05, 2017 09:55
[2017-02-05 10:31] LABS: MEAN CORPUSCULAR HEMOGLOBIN 29.3 pg (27.0-33.0); MEAN CORPUSCULAR HGB CONC 32.4 g/dl (32.0-36.5); MEAN CORPUSCULAR VOLUME 90.5 fl (80.0-96.0); PLATELET COUNT, AUTOMATED 260 10^3/uL (150-450); RED CELL DISTRIBUTION WIDTH 13.3 % (11.5-14.5); WHITE BLOOD COUNT 7.1 10^3/uL (4.0-10.0)
[2017-02-05 10:53] LABS: ANION GAP 8 MEQ/L (8-16); BLOOD UREA NITROGEN 11 MG/DL (7-18); CALCIUM LEVEL 8.8 MG/DL (8.8-10.2); CARBON DIOXIDE LEVEL 27 MEQ/L (21-32); CHLORIDE LEVEL 106 MEQ/L (98-107); CREATININE FOR GFR 0.83 MG/DL (0.70-1.30); GLOMERULAR FILTRATION RATE > 60.0 (>42); GLUCOSE, FASTING 104 MG/DL (83-110); POTASSIUM SERUM 4.3 MEQ/L (3.5-5.1); SODIUM LEVEL 141 MEQ/L (136-145)
[2017-02-05] MEDS ORDERED: PROPOFOL 200 MG/20 ML VIAL As Ordered ONE (13:28)
[2017-02-05] MEDS ORDERED: METOCLOPRAMIDE INJ 10MG/2ML VIAL (J2765) As Ordered ONE (13:28)
[2017-02-05] MEDS ORDERED: MIDAZOLAM INJ 2 MG/2 ML VIAL (J2250) As Ordered ONE (13:28)
[2017-02-05] MEDS ORDERED: LIDOCAINE 2% INJ 100 MG/5 ML SDV (FOR ANES.) As Ordered ONE (13:28)
[2017-02-05] MEDS ORDERED: fentaNYL 100 MCG/2 ML INJECTION (J3010) As Ordered ONE (13:28)
[2017-02-05] MEDS ORDERED: ONDANSETRON 4MG/2ML VIAL (J2405) As Ordered ONE (13:28)
[2017-02-05] MEDS ORDERED: HYDROmorphone HCL 2 MG/ML 1ML VIAL (J1170) As Ordered ONE (14:23)
[2017-02-05] MEDS ORDERED: ePHEDrine SULFATE 25 MG/5 ML(5MG/ML) SYRINGE As Ordered ONE (14:23)
[2017-02-05] MEDS ORDERED: dexameTHASONE 4 MG/ML 1ML VIAL (J1100) As Ordered ONE (14:26)
[2017-02-05] MEDS ORDERED: PERCOCET 5MG/325MG TAB As Ordered ONE (15:07)
[2017-02-05] MEDS ORDERED: ACETAMINOPHEN TAB 650MG DOSE (2X325MG) PO PRN (15:15)
[2017-02-05] MEDS ORDERED: MEPERIDINE INJ 25 MG/ML VIAL (J2175) IV PRN (15:15)
[2017-02-05] MEDS ORDERED: METOCLOPRAMIDE INJ 10MG/2ML VIAL (J2765) IV PRN (15:15)
[2017-02-05] MEDS ORDERED: LR 1,000 ML IV SCH (15:15)
[2017-02-05] MEDS ORDERED: fentaNYL 100 MCG/2 ML INJECTION (J3010) IV PRN (15:15)
[2017-02-05] MEDS ORDERED: PERCOCET 5MG/325MG TAB PO PRN (15:15)
[2017-02-05] MEDS ORDERED: oxyBUTYnin 5 MG TAB PO PRN (15:15)
[2017-02-05] MEDS ORDERED: CIPR-249 PO (16:25)
[2017-02-05] MEDS ORDERED: FINA5TAB2 PO (16:25)
[2017-02-06] MEDS ORDERED: CIPROFLOXACIN 500 MG TAB PO SCH (06:00)
--- NOTE | 2017-02-06 15:05 | RO ---
DATE OF PROCEDURE: 02/05/2017 PREPROCEDURE DIAGNOSIS: Gross hematuria, urinary retention. POSTPROCEDURE DIAGNOSIS: Gross hematuria, urinary retention. PROCEDURE: Cystoscopy, transurethral fulguration of prostatic ureteral bleeding, clot evacuation. SURGEON: Dom Enriquez MD FLESHING MACHINE OPERATOR: None. ANESTHESIA: General. OPERATIVE INDICATIONS: This is a 77-year-old male who was brought to the operating room about 1 month ago for gross hematuria and urinary retention and was found to have prostatic urethral bleeding. He had fulguration of prostatic urethra then and then was brought back to the hospital on this admission once again with gross hematuria and clot retention. DESCRIPTION OF PROCEDURE: The patient was brought to the operating room where general anesthesia was induced. Prophylactic antibiotics were already infused. He was then placed in the dorsal lithotomy position, prepped and draped in the usual sterile fashion. At this point, a bladder resectoscope was inserted into the urethral meatus and advanced to the bladder. The bladder was thoroughly examined and of note there was no active bleeding or any lesions inside of the bladder. I observed both ureteral orifices and they both effluxed clear urine. This indicated the bleeding was not coming from the kidneys. At this point, I came back and examined the prostatic urethra and there were a few areas within the prostatic urethra where there was a small amount of venous bleeding, but not arterial bleeding. At this point, I proceeded to cauterize the entire prostatic urethra, especially the areas where there was venous bleeding. Once done, there was no bleeding at all within the bladder or the prostatic urethra. Also prior to doing that, I evacuated a large amount of clot out of the bladder using an [place] evacuator. At this point, I advance an 18 Upper Sorbian Davis catheter into the bladder and the balloon was filled with 15 mL of sterile water. Fluid drained clear at the end of the procedure. The catheter was connected to gravity drainage, this marked conclusion of the procedure. The patient was then taken out of dorsal lithotomy position, awakened from anesthesia and transported to the recovery room in stable condition. Estimated blood loss 5 mL. COMPLICATIONS: None. SPECIMENS: None. PLAN: The patient will be taken back up to his room on the floor. If his urine remains clear, he can be discharged home with the catheter in place with the plan to followup in the clinic in 1 week for catheter removal and voiding trial.
--- NOTE | 2017-02-16 15:01 | DSES ---
DATE OF ADMISSION: 02/04/2017 DATE OF DISCHARGE: 02/05/2017 ADMISSION DIAGNOSIS: Gross hematuria. DISCHARGE DIAGNOSIS: Gross hematuria. ADMITTING PHYSICIAN: Dr. Gurvinder Her DISCHARGING PHYSICIAN: Dr. Dom Enriquez PROCEDURES PERFORMED: Cystoscopy with transurethral fulguration of the prostatic urethra. HISTORY OF PRESENT ILLNESS: This is a 77-year-old male who had a transurethral electrofulguration of the prostate and resection of bladder tumor almost a year ago. He has had recurrent episodes of gross hematuria over the last two months. He came back to the emergency room on 02/04/2017 with gross hematuria and inability to urinate. He then was admitted to the hospital after that. The patient was admitted to the hospital on 02/04/2017 for gross hematuria and urinary retention. Given the recurrent nature of his hematuria, it was recommended that he be taken to the operating room on 02/05/2017. We did that and cauterized his prostatic urethra and his hematuria resolved. He was discharged home on 02/05/2017 with a catheter in place with the plan for him to followup in the clinic approximately one week later for catheter removal.
== END 2017-02-05 18:38 | disposition home or self-care (01) | DRG 729 ==
LOC: M ED 15:44 → M ED INP 20:17 → M MS5PR 02-05 01:04
PROVIDERS: ADMIT Urology; ATTEND Urology
PROC: 0T5D8ZZ Destruction of Urethra, Via Natural or Artificial Opening Endoscopic (ICD-10-PCS; principal; 2017-02-05 14:30)
DX: N42.1 Congestion and hemorrhage of prostate (principal); N02.9 Recurrent and persistent hematuria with unspecified morphologic changes; R33.9 Retention of urine, unspecified; Z79.899 Other long term (current) drug therapy; Z88.0 Allergy status to penicillin; N36.8 Other specified disorders of urethra

== ENCOUNTER → 2017-02-23 | Outpatient (REF) | payer OTHER ==
[~2017-02-23] MED LIST changes: +FINA5TAB2 PO
== END ==
LOC: M SMT 16:55
PROVIDERS: ATTEND Urology
DX: R30.0 Dysuria (principal)

== ENCOUNTER → 2017-03-18 | Outpatient (REF) | payer OTHER | LOC: M SFHCPLAZ 17:15 | PROVIDERS: ATTEND Urology | DX: Z85.46 Personal history of malignant neoplasm of prostate (principal) ==

== ENCOUNTER → 2017-11-04 | Outpatient (CLI) | payer OTHER ==
[2017-11-04 13:10] LABS: BASO # 0.1 10^3/uL (0.0-0.2); BASO % 1.1 % (0.0-1.0); EOS # 0.1 10^3/uL (0.0-0.50); EOS % 1.5 % (0.0-3.0); HEMATOCRIT 44.5 % (42.0-52.0); HEMOGLOBIN 14.5 g/dl (13.5-17.5); IMMATURE GRANULOCYTE % 0.4 % (0-3.0); LYMPH # 1.4 10^3/uL (1.5-4.5); LYMPH % 26.4 % (24.0-44.0); MEAN CORPUSCULAR HEMOGLOBIN 29.5 pg (27.0-33.0); MEAN CORPUSCULAR HGB CONC 32.6 g/dl (32.0-36.5); MEAN CORPUSCULAR VOLUME 90.4 fl (80.0-96.0); MONO # 0.4 10^3/uL (0.0-0.8); MONO % 8.4 % (0.0-5.0); NEUTROPHILS # 3.3 10^3/uL (1.8-7.7); NEUTROPHILS % 62.2 % (36.0-66.0); PLATELET COUNT, AUTOMATED 235 10^3/uL (150-450); RED BLOOD COUNT 4.92 10^6/uL (4.30-6.10); RED CELL DISTRIBUTION WIDTH 13.2 % (11.5-14.5); WHITE BLOOD COUNT 5.3 10^3/uL (4.0-10.0)
[2017-11-04 13:49] LABS: ALBUMIN 3.6 GM/DL (3.2-5.2); ALKALINE PHOSPHATASE 65 U/L (45-117); ALT/SGPT 18 U/L (12-78); AMYLASE 42 U/L (25-115); ANION GAP 8 MEQ/L (8-16); AST/SGOT 10 U/L (7-37); BILIRUBIN,TOTAL 0.4 MG/DL (0.2-1.0); BLOOD UREA NITROGEN 13 MG/DL (7-18); CALCIUM LEVEL 8.7 MG/DL (8.8-10.2); CARBON DIOXIDE LEVEL 28 MEQ/L (21-32); CHLORIDE LEVEL 105 MEQ/L (98-107); CREATININE FOR GFR 1.02 MG/DL (0.70-1.30); GLOMERULAR FILTRATION RATE > 60.0 (>42); GLUCOSE, FASTING 78 MG/DL (70-100); LIPASE 173 U/L (73-393); SODIUM LEVEL 141 MEQ/L (136-145); TOTAL PROTEIN 6.6 GM/DL (6.4-8.2)
== END ==
LOC: M SMT 10:13
DX: R10.84 Generalized abdominal pain (principal)
CPT/HCPCS: 82150

== ENCOUNTER → 2017-11-06 | Outpatient (CLI) | payer OTHER ==
[~2017-11-06] MED LIST changes: -ACET650T3 PO; -ASPI1TAB15 PO; -CHLO25TA PO; -CIPR-249 PO; -COUM1TAB17 PO; -FINA5TAB2 PO; -FLOM5CAP PO; +GASTROGRAFIN SOLUTION 30ML (Q9963) As Ordered; +ISOVUE-370 76% 100ML VIAL (Q9967) As Ordered; -LISI-542 PO; -NEXI40CA PO; -OXYB5TAB10 PO; -PERC5TAB12 PO; -PLAV1TAB2 PO; -POTA20TA PO; -TRAM50TA2 PO; -TYLE650T35 PO; -VICO5TAB16 PO; -ZOFR4TAB3 PO
== END ==
LOC: M RAD 12:46
DX: R10.84 Generalized abdominal pain (principal); N40.0 Benign prostatic hyperplasia without lower urinary tract symptoms; K57.30 Diverticulosis of large intestine without perforation or abscess without bleeding; N32.89 Other specified disorders of bladder; N32.3 Diverticulum of bladder
CPT/HCPCS: Q9963

== ENCOUNTER → 2018-02-25 | Outpatient (REF) | payer OTHER | LOC: M LAB REF 19:15 | DX: N39.0 Urinary tract infection, site not specified (principal) | CPT/HCPCS: 87088 ==

== ENCOUNTER → 2018-07-21 | Outpatient (CLI) | payer MEDICARE ==
[~2018-07-21] MED LIST changes: +ACET650T3 PO; +ASPI1TAB15 PO; +CHLO25TA PO; +CIPR-249 PO; +COUM1TAB17 PO; +FINA5TAB2 PO; +FLOM0.4C39 PO; -GASTROGRAFIN SOLUTION 30ML (Q9963) As Ordered; -ISOVUE-370 76% 100ML VIAL (Q9967) As Ordered; +KLOR20TA42 PO; +LISI-542 PO; +NEXI40CA PO; +OXYB5TAB10 PO; +PERC5TAB12 PO; +PLAV1TAB2 PO; +TRAM50TA2 PO; +TYLE650T35 PO; +VICO5TAB17 PO; +ZOFR4TAB14 PO
== END ==
LOC: M SMT 09:43
PROVIDERS: ATTEND Urology
DX: Z12.5 Encounter for screening for malignant neoplasm of prostate (principal)
CPT/HCPCS: 36415; G0103

== ENCOUNTER → 2018-07-29 | Outpatient (REF) | payer OTHER, MEDICARE ==
[2018-07-29 17:48] LABS: APPEARANCE, URINE CLEAR (CLEAR); BACTERIA, URINE AUTO NEGATIVE (NEGATIVE); BILIRUBIN, URINE AUTO NEGATIVE (NEGATIVE); BLOOD, URINE BLOOD NEGATIVE (NEGATIVE); COLOR, URINE STRAW (YELLOW); GLUCOSE, URINE (UA) AUTO NEGATIVE (NEGATIVE); KETONE, URINE AUTO NEGATIVE (NEGATIVE); LEUKOCYTE ESTERASE, URINE AUTO NEGATIVE (NEGATIVE); NITRITE, URINE AUTO NEGATIVE (NEGATIVE); PROTEIN, URINE AUTO NEGATIVE (NEGATIVE); RBC, URINE AUTO 1 /HPF (0-3); SPECIFIC GRAVITY URINE AUTO 1.005 (1.002-1.035); SQUAMOUS EPITHELIAL CELL UR AU 0 /HPF (0-6); UROBILINOGEN, URINE AUTO 0.2 mg/dL (0.0-2.0); WBC, URINE AUTO 0 /HPF (0-3)
== END ==
LOC: M LAB REF 17:02
PROVIDERS: ATTEND Urology
DX: N39.0 Urinary tract infection, site not specified (principal)

== ENCOUNTER → 2018-09-06 | Outpatient (CLI) | payer OTHER, MEDICARE | LOC: M SMT 13:45 | PROVIDERS: ATTEND Urology | DX: R97.20 Elevated prostate specific antigen [PSA] (principal) ==

== ENCOUNTER → 2018-09-13 | Outpatient (REF) | payer MEDICARE, OTHER | LOC: M SMT 17:18 | PROVIDERS: ATTEND Urology | DX: C67.9 Malignant neoplasm of bladder, unspecified (principal) ==

== ENCOUNTER → 2018-10-12 | Outpatient (CLI) | payer MEDICARE ==
[2018-10-12 13:50] LABS: HEMATOCRIT 47.1 % (42.0-52.0); HEMOGLOBIN 15.3 g/dl (13.5-17.5); MEAN CORPUSCULAR HEMOGLOBIN 30.6 pg (27.0-33.0); MEAN CORPUSCULAR HGB CONC 32.5 g/dl (32.0-36.5); MEAN CORPUSCULAR VOLUME 94.2 fl (80.0-96.0); PLATELET COUNT, AUTOMATED 243 10^3/uL (150-450); WHITE BLOOD COUNT 6.3 10^3/uL (4.0-10.0)
[2018-10-12 14:08] LABS: ALBUMIN 3.7 GM/DL (3.2-5.2); ALT/SGPT 22 U/L (12-78); BILIRUBIN,TOTAL 0.4 MG/DL (0.2-1.0); BLOOD UREA NITROGEN 16 MG/DL (7-18); CALCIUM LEVEL 9.2 MG/DL (8.8-10.2); CARBON DIOXIDE LEVEL 29 MEQ/L (21-32); CHLORIDE LEVEL 105 MEQ/L (98-107); CREATININE FOR GFR 1.02 MG/DL (0.70-1.30); GLOMERULAR FILTRATION RATE > 60.0 (>42); GLUCOSE, FASTING 89 MG/DL (70-100); SODIUM LEVEL 141 MEQ/L (136-145); TOTAL PROTEIN 6.9 GM/DL (6.4-8.2)
== END ==
LOC: M SMT 09:45
PROVIDERS: ATTEND Family Medicine
DX: R42 Dizziness and giddiness (principal); E07.9 Disorder of thyroid, unspecified

== ENCOUNTER 2018-10-13 09:22 | Emergency (ER) | payer MEDICARE ==
[~2018-10-13] VITALS: Ht 175.3 cm; Wt 94.5 kg
--- NOTE | 2018-10-13 10:28 | REP ---
CT brain without contrast: History: Dizziness. Numbness. Headache. No comparison brain imaging. CT findings: Digital preliminary house shorer radiograph is unremarkable. There is no evidence of bony calvarial destructive lesion. Vascular calcification is noted fairly heavily involving the distal vertebral and distal carotid arteries. There is mild mucosal thickening in the ethmoid air cells bilaterally. No intraorbital abnormality is. On soft tissue window settings, there is mild to moderate cerebral atrophy present diffusely. There are small vessel atherosclerotic changes in the periventricular white matter of the frontal and parietal lobes bilaterally. There is no evidence of intracranial hemorrhage. No infarct, mass, extra-axial fluid collection or midline shift is seen. Impression: Diffuse atrophy and vascular calcification. No acute intracranial abnormality. Small vessel atherosclerotic changes are noted. Mild ethmoid sinus mucosal thickening. Electronically Signed by Samy Arce MD 10/13/2018 10:20 A
[2018-10-13 11:01] LABS: BASO # 0.1 10^3/uL (0.0-0.2); EOS # 0.2 10^3/uL (0.0-0.50); EOS % 3.7 % (0.0-3.0); HEMATOCRIT 46.7 % (42.0-52.0); HEMOGLOBIN 15.5 g/dl (13.5-17.5); LYMPH # 1.1 10^3/uL (1.5-4.5); LYMPH % 19.3 % (24.0-44.0); MEAN CORPUSCULAR HEMOGLOBIN 30.8 pg (27.0-33.0); MEAN CORPUSCULAR HGB CONC 33.2 g/dl (32.0-36.5); MEAN CORPUSCULAR VOLUME 92.8 fl (80.0-96.0); MONO # 0.5 10^3/uL (0.0-0.8); MONO % 8.1 % (0.0-5.0); NEUTROPHILS % 67.6 % (36.0-66.0); PLATELET COUNT, AUTOMATED 229 10^3/uL (150-450); RED BLOOD COUNT 5.03 10^6/uL (4.30-6.10); WHITE BLOOD COUNT 5.9 10^3/uL (4.0-10.0)
[2018-10-13 11:38] LABS: ALBUMIN 3.6 GM/DL (3.2-5.2); ALT/SGPT 19 U/L (12-78); BILIRUBIN,DIRECT < 0.1 MG/DL (0.0-0.2); BILIRUBIN,TOTAL 0.3 MG/DL (0.2-1.0); BLOOD UREA NITROGEN 11 MG/DL (7-18); CALCIUM LEVEL 8.9 MG/DL (8.8-10.2); CARBON DIOXIDE LEVEL 30 MEQ/L (21-32); CHLORIDE LEVEL 107 MEQ/L (98-107); CK-MB VALUE MASS 1.3 NG/ML (<3.6); CPK CREATINE PHOSPHOKINASE 67 U/L (39-308); CREATININE FOR GFR 0.99 MG/DL (0.70-1.30); GLOMERULAR FILTRATION RATE > 60.0 (>42); GLUCOSE, FASTING 99 MG/DL (70-100); MB/CK RELATIVE INDEX 1.94 (< OR =4); POTASSIUM SERUM 4.1 MEQ/L (3.5-5.1); SODIUM LEVEL 142 MEQ/L (136-145); TOTAL PROTEIN 7.1 GM/DL (6.4-8.2); TROPONIN I < 0.02 NG/ML (< 0.10)
[2018-10-13 13:50] VITALS: BP 172/86
--- NOTE | 2018-10-13 14:01 | REP ---
MRI BRAIN WITHOUT CONTRAST: HISTORY: Severe dizziness that comes and goes. Weakness and pain on the left side. Vertigo left-sided paresthesias. History of CVA. Comparison head CT study is from earlier this date. TECHNIQUE: Axial and sagittal imaging planes are utilized for T1 and T2-weighted scans. Sequences include spin-echo, fast spin echo, FLAIR, and diffusion weighted sequences. MRI FINDINGS: Diffusion weighted scans show no evidence to suggest acute ischemia. There is mild generalized atrophy. Scattered periventricular and subcortical white matter foci of hyperintensity are seen consistent with mild small vessel changes. There are dilated perivascular spaces noted as a normal variant. There is no evidence of intracranial hemorrhage. No extra-axial fluid collection, mass or midline shift is seen. There is mild mucosal thickening in the ethmoid air cells bilaterally. No intraorbital abnormality is seen. Craniocervical junction and upper cervical cord are unremarkable. IMPRESSION: Mild generalized atrophy. Small vessel changes. No acute intracranial lesion. Electronically Signed by Samy Arce MD 10/13/2018 04:23 P
--- NOTE | 2018-10-13 14:04 | REP ---
MR angiography the brain without contrast: History: Vertigo, paresthesias on the left. History of CVA. Technique: 3-D [id number] MR angiography of the brain is acquired in the usual fashion and maximal intensity projection images were generated in rotational format about the vertical and horizontal axes. In addition, source axial T1-weighted images are viewed in cine mode. MR angiographic findings: The right distal vertebral artery shows stenosis in the distal cervical segment at the bottom of the imaging field of view. The distal vertebral artery on the left is not patent. Basilar artery is a little tortuous but widely patent. There is atherosclerotic disease affecting the posterior cerebral arteries which are both somewhat stenotic, left more so than right. Superior cerebellar vessels appear symmetric. The distal internal carotid arteries are unremarkable. The A1 segment of the left anterior cerebral artery is incompletely seen. This may be hypoplastic. The anterior and middle cerebral arteries are unremarkable. There is no visible jasso aneurysm or arteriovenous malformation. Impression: There are atherosclerotic changes involving the posterior cerebral arteries bilaterally, left more so than right with stenosis. There is stenosis of the right distal vertebral artery. The left distal vertebral artery is not patent. The A1 segment of the anterior cerebral artery on the left is incompletely seen. Otherwise unremarkable MR angiography the brain. Unreviewed
[2018-10-13] MEDS ORDERED: PLAV1TAB2 PO (14:25)
--- NOTE | 2018-10-13 19:14 | ECGEPIP ---
[facility] - ED Test Date: 2018-10-13 Pat Name: ROSEMARY BANUELOS Department: Room: - Gender: Male [employer]: coreen : 1940 Requested By: Kimberly Bey Order Number: [id number] Reading MD: Kimberly Bey Measurements Intervals [place] Rate: 64 P: 10 NH: 151 QRS: QRSD: 103 T: 18 QT: 412 QTc: 428 Interpretive Statements SINUS RHYTHM DECREASED RATE 01/15/17 Electronically Signed on 10-13-2018 19:14:20 EDT by Kimberly Bey
== END 2018-10-13 14:50 | disposition home or self-care (01) ==
LOC: M ED 09:22
DX: R42 Dizziness and giddiness (principal); I65.09 Occlusion and stenosis of unspecified vertebral artery; I10 Essential (primary) hypertension; R10.9 Unspecified abdominal pain; Z86.73 Personal history of transient ischemic attack (TIA), and cerebral infarction without residual deficits; M48.00 Spinal stenosis, site unspecified; Z85.51 Personal history of malignant neoplasm of bladder; Z87.891 Personal history of nicotine dependence; Z79.82 Long term (current) use of aspirin; Z79.899 Other long term (current) drug therapy; Z88.0 Allergy status to penicillin

== ENCOUNTER 2018-11-04 06:28 | Emergency (ER) | payer MEDICARE ==
[~2018-11-04] VITALS: Ht 175.3 cm; Wt 94.1 kg
[2018-11-04 08:46] LABS: BASO # 0.1 10^3/uL (0.0-0.2); BASO % 0.7 % (0.0-1.0); EOS # 0.2 10^3/uL (0.0-0.50); EOS % 2.3 % (0.0-3.0); HEMATOCRIT 47.2 % (42.0-52.0); HEMOGLOBIN 15.7 g/dl (13.5-17.5); LYMPH # 1.4 10^3/uL (1.5-4.5); LYMPH % 18.6 % (24.0-44.0); MEAN CORPUSCULAR HEMOGLOBIN 30.5 pg (27.0-33.0); MEAN CORPUSCULAR HGB CONC 33.3 g/dl (32.0-36.5); MEAN CORPUSCULAR VOLUME 91.8 fl (80.0-96.0); MONO # 0.5 10^3/uL (0.0-0.8); MONO % 6.8 % (0.0-5.0); NEUTROPHILS # 5.3 10^3/uL (1.8-7.7); NEUTROPHILS % 71.3 % (36.0-66.0); PLATELET COUNT, AUTOMATED 257 10^3/uL (150-450); RED BLOOD COUNT 5.14 10^6/uL (4.30-6.10); WHITE BLOOD COUNT 7.5 10^3/uL (4.0-10.0)
[2018-11-04] MEDS ORDERED: ISOVUE-370 76% 100ML VIAL (Q9967) As Ordered ONE (09:02)
--- NOTE | 2018-11-04 10:15 | REP ---
CT NECK WITH CONTRAST: HISTORY: Right cheek swelling. CONTRAST: Isovue-370. Calcifications are present in the tonsils. Secretions are present in the vallecula. The naso-, deana-, and hypopharynx, larynx, and subglottic trachea are otherwise unremarkable in appearance. The salivary and thyroid glands are normal in size and density. Small lymph nodes less than 1 cm in size are present in the internal jugular chains, posterior triangles, submandibular and submental areas. Stranding is present in the subcutaneous tissue overlying the body of the right mandible. There is thickening of the superficial subcutaneous tissue. These findings are consistent with cellulitis. Degenerative change is present in the cervical spine. The lung apices are clear. Mucosal thickening is present in the ethmoid and left frontal sinuses. IMPRESSION:The above findings are consistent with cellulitis overlying the body of the right mandible. Electronically Signed by Jian Salomon MD 11/04/2018 10:43 A
[2018-11-04 10:37] VITALS: BP 198/96
[2018-11-04 11:08] LABS: INR 1.03; PROTHROMBIN TIME 13.2 SECONDS (11.8-14.0)
[2018-11-04 11:09] LABS: PARTIAL THROMBOPLASTIN TIME 35.4 SECONDS (25.0-38.4)
--- NOTE | 2018-11-14 21:19 | ED PDOC ---
Post-Departure Follow-Up dr peña faxed formal report of ct neck for fu Adriana Jimenez MD Nov 14, 2018 21:19
== END 2018-11-04 11:07 | disposition home or self-care (01) ==
LOC: M ED 06:28
DX: L76.21 Postprocedural hemorrhage of skin and subcutaneous tissue following a dermatologic procedure (principal); G93.0 Cerebral cysts; I10 Essential (primary) hypertension; Z88.0 Allergy status to penicillin
CPT/HCPCS: 70491; 80047; 85025; 85610; 85730; 99284; Q9967

== ENCOUNTER 2018-11-06 16:33 | Emergency (ER) | payer MEDICARE ==
[~2018-11-06] VITALS: Ht 170.2 cm; Wt 93.2 kg
[2018-11-06] MEDS ORDERED: LABETALOL HCL 100 MG/20 ML VIAL IV STA ×2 (16:53→17:57)
[2018-11-06 17:19] LABS: BASO # 0.1 10^3/uL (0.0-0.2); BASO % 0.6 % (0.0-1.0); EOS # 0.2 10^3/uL (0.0-0.50); HEMATOCRIT 45.1 % (42.0-52.0); HEMOGLOBIN 14.6 g/dl (13.5-17.5); LYMPH # 1.4 10^3/uL (1.5-4.5); MEAN CORPUSCULAR HEMOGLOBIN 29.2 pg (27.0-33.0); MEAN CORPUSCULAR HGB CONC 32.4 g/dl (32.0-36.5); MEAN CORPUSCULAR VOLUME 90.2 fl (80.0-96.0); MONO # 0.4 10^3/uL (0.0-0.8); MONO % 4.3 % (0.0-5.0); NEUTROPHILS # 7.9 10^3/uL (1.8-7.7); NEUTROPHILS % 78.5 % (36.0-66.0); PLATELET COUNT, AUTOMATED 258 10^3/uL (150-450); WHITE BLOOD COUNT 10.1 10^3/uL (4.0-10.0)
[2018-11-06 17:30] LABS: INR 1.03; PROTHROMBIN TIME 13.2 SECONDS (11.8-14.0)
--- NOTE | 2018-11-06 17:35 | REPVR ---
EXAM: CT Head Without Contrast EXAM DATE/TIME: 11/06/2018 5:07 PM CLINICAL HISTORY: 78 years old, male; Syncope and collapse TECHNIQUE: Imaging protocol: Computed tomography images of the head without contrast. Radiation optimization: All CT scans at this facility use at least one of these dose optimization techniques: automated exposure control; mA and/or kV adjustment per patient size (includes targeted exams where dose is matched to clinical indication); or iterative reconstruction. COMPARISON: CT Head without contrast 10/13/2018 10:04 AM FINDINGS: Brain: Patchy areas of hypoattenuation in the periventricular and subcortical white matter, consistent with chronic small vessel ischemic disease. No CT evidence of acute intracranial hemorrhage or acute territorial infarction. No significant mass effect or midline shift. Basal cisterns patent. Ventricles: Prominence of the cortical sulci, cisterns and ventricular system, consistent with cerebral and cerebellar volume loss. 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 Bones/joints: No acute osseous abnormality. Sinuses: Mild mucosal thickening of the ethmoid air cells and paranasal sinuses. Mastoid air cells: Grossly unremarkable. Soft tissues: Grossly unremarkable. Vasculature: Calcific atherosclerotic disease in the cavernous internal carotid arteries, as well as the vertebro-basilar system. IMPRESSION: 1. No CT evidence of acute intracranial pathology. 2. Additional findings, as above. Electronically signed by: Kanu Samaniego On 11/06/2018 17:35:33 PM
[2018-11-06 17:54] LABS: BLOOD UREA NITROGEN 13 MG/DL (7-18); CALCIUM LEVEL 8.7 MG/DL (8.8-10.2); CARBON DIOXIDE LEVEL 28 MEQ/L (21-32); CHLORIDE LEVEL 107 MEQ/L (98-107); CK-MB VALUE MASS 1.9 NG/ML (<3.6); CPK CREATINE PHOSPHOKINASE 67 U/L (39-308); CREATININE FOR GFR 0.93 MG/DL (0.70-1.30); GLOMERULAR FILTRATION RATE > 60.0 (>42); GLUCOSE, FASTING 94 MG/DL (70-100); MAGNESIUM LEVEL 2.1 MG/DL (1.8-2.4); MB/CK RELATIVE INDEX 2.84 (< OR =4); POTASSIUM SERUM 3.8 MEQ/L (3.5-5.1); SODIUM LEVEL 142 MEQ/L (136-145); TROPONIN I < 0.02 NG/ML (< 0.10)
[2018-11-06 17:57] VITALS: BP 217/98
--- NOTE | 2018-11-06 18:16 | ECGEPIP ---
[facility] - ED Test Date: 2018-11-06 Pat Name: ROSEMARY BANUELOS Department: Room: - Gender: Male Investigative Reporter: [facility] : 1940 Requested By: Kimberly Bey Order Number: [id number] Reading MD: Kimberly Bey Measurements Intervals [place] Rate: 78 P: 16 SD: 145 QRS: -31 QRSD: 106 T: 23 QT: 396 QTc: 454 Interpretive Statements SINUS RHYTHM MARKED LEFT AXIS DEVIATION INCREASED RATE 10/13/18 Electronically Signed on 11-06-2018 18:15:39 EDT by Kimberly Bey
[2018-11-06] MEDS ORDERED: MECL-68 PO ×2 (18:43→19:17)
[2018-11-06 18:45] VITALS: BP 149/76
== END 2018-11-06 19:53 | disposition home or self-care (01) ==
LOC: M ED 16:33
DX: R55 Syncope and collapse (principal); I10 Essential (primary) hypertension; Z79.899 Other long term (current) drug therapy; Z79.82 Long term (current) use of aspirin; Z88.0 Allergy status to penicillin; Z87.891 Personal history of nicotine dependence

== ENCOUNTER → 2018-12-23 | Outpatient (REF) | payer MEDICARE ==
[~2018-12-23] MED LIST changes: +MECL-68 PO
[2018-12-23 17:31] LABS: APPEARANCE, URINE CLEAR (CLEAR); BACTERIA, URINE AUTO NEGATIVE (NEGATIVE); BILIRUBIN, URINE AUTO NEGATIVE (NEGATIVE); BLOOD, URINE BLOOD 3+ (NEGATIVE); COLOR, URINE YELLOW (YELLOW); GLUCOSE, URINE (UA) AUTO NEGATIVE (NEGATIVE); KETONE, URINE AUTO NEGATIVE (NEGATIVE); LEUKOCYTE ESTERASE, URINE AUTO NEGATIVE (NEGATIVE); MUCUS, URINE SMALL (NEGATIVE); NITRITE, URINE AUTO NEGATIVE (NEGATIVE); PROTEIN, URINE AUTO NEGATIVE (NEGATIVE); RBC, URINE AUTO TNTC /HPF (0-3); SPECIFIC GRAVITY URINE AUTO 1.004 (1.002-1.035); SQUAMOUS EPITHELIAL CELL UR AU 0 /HPF (0-6); UROBILINOGEN, URINE AUTO 0.2 mg/dL (0.0-2.0); WBC, URINE AUTO 6 /HPF (0-3)
== END ==
LOC: M SMT 16:42
PROVIDERS: ATTEND Urology
DX: R31.0 Gross hematuria (principal)

== ENCOUNTER → 2019-01-12 | Outpatient (CLI) | payer MEDICARE | LOC: M SMT 08:35 | PROVIDERS: ATTEND Family Medicine | DX: R97.20 Elevated prostate specific antigen [PSA] (principal) ==

== ENCOUNTER → 2020-12-31 | Outpatient (CLI) | payer MEDICARE ==
[~2020-12-31] MED LIST changes: +ACET650T61 PO; +ASPI-546 PO; -ASPI1TAB15 PO; -KLOR20TA42 PO; -LISI-542 PO; +LISI-898 PO; -MECL-68 PO; +MECL1TAB31 PO; +POTA-141 PO; -TYLE650T35 PO
[2020-12-31 13:27] LABS: HEMOGLOBIN 14.4 g/dl (13.5-17.5); MEAN CORPUSCULAR HEMOGLOBIN 30.8 pg (27.0-33.0); MEAN CORPUSCULAR HGB CONC 32.7 g/dl (32.0-36.5); MEAN CORPUSCULAR VOLUME 94.2 fl (80.0-96.0); PLATELET COUNT, AUTOMATED 207 10^3/uL (150-450); RED BLOOD COUNT 4.67 10^6/uL (4.30-6.10); WHITE BLOOD COUNT 6.2 10^3/uL (4.0-10.0)
[2020-12-31 13:40] LABS: ALBUMIN 3.5 GM/DL (3.2-5.2); ALT/SGPT 15 U/L (12-78); BILIRUBIN,TOTAL 0.3 MG/DL (0.2-1.0); BLOOD UREA NITROGEN 13 MG/DL (7-18); CALCIUM LEVEL 9.4 MG/DL (8.8-10.2); CARBON DIOXIDE LEVEL 29 MEQ/L (21-32); CHLORIDE LEVEL 103 MEQ/L (98-107); CHOLESTEROL LEVEL 210 MG/DL (<200); CHOLESTEROL RISK RATIO 4.565 (<5); CREATININE FOR GFR 0.96 MG/DL (0.70-1.30); GLOMERULAR FILTRATION RATE > 60.0 (>35); GLUCOSE, FASTING 95 MG/DL (70-100); HDL CHOLESTEROL 46 MG/DL (>40); LDL CHOLESTEROL 131 MG/DL (<100); NON-HDL-C 164 MG/DL; POTASSIUM SERUM 4.2 MEQ/L (3.5-5.1); PROSTATIC SPECIFIC AG MONITOR 2.01 NG/ML (< 4.00); SODIUM LEVEL 139 MEQ/L (136-145); TOTAL PROTEIN 6.4 GM/DL (6.4-8.2); TRIGLYCERIDES LEVEL 167 MG/DL (<150)
== END ==
LOC: M WUC 10:39
PROVIDERS: ATTEND Family Medicine
DX: R97.20 Elevated prostate specific antigen [PSA] (principal); I10 Essential (primary) hypertension

== ENCOUNTER → 2021-05-27 | Outpatient (CLI) | payer MEDICARE ==
[~2021-05-27] MED LIST changes: -LISI-898 PO; +LISI5TAB11 PO; +PHEN-501 PO; +TAMS1CAP17 PO
[2021-05-27 10:07] LABS: HEMATOCRIT 49.3 % (42.0-52.0); HEMOGLOBIN 15.6 g/dl (13.5-17.5); MEAN CORPUSCULAR HEMOGLOBIN 29.6 pg (27.0-33.0); MEAN CORPUSCULAR HGB CONC 31.6 g/dl (32.0-36.5); MEAN CORPUSCULAR VOLUME 93.5 fl (80.0-96.0); PLATELET COUNT, AUTOMATED 246 10^3/uL (150-450); RED BLOOD COUNT 5.27 10^6/uL (4.30-6.10); WHITE BLOOD COUNT 7.8 10^3/uL (4.0-10.0)
[2021-05-27 10:16] LABS: INR 0.9; PROTHROMBIN TIME 12.6 SECONDS (12.7-14.5)
[2021-05-27 10:30] LABS: ALBUMIN 3.8 GM/DL (3.2-5.2); ALT/SGPT 19 U/L (12-78); BILIRUBIN,TOTAL 0.5 MG/DL (0.2-1.0); BLOOD UREA NITROGEN 12 MG/DL (7-18); CALCIUM LEVEL 9.5 MG/DL (8.8-10.2); CARBON DIOXIDE LEVEL 29 MEQ/L (21-32); CHLORIDE LEVEL 105 MEQ/L (98-107); CREATININE FOR GFR 1.05 MG/DL (0.70-1.30); GLOMERULAR FILTRATION RATE > 60.0 (>35); GLUCOSE, FASTING 101 MG/DL (70-100); POTASSIUM SERUM 4.4 MEQ/L (3.5-5.1); SODIUM LEVEL 140 MEQ/L (136-145); TOTAL PROTEIN 7.2 GM/DL (6.4-8.2)
== END ==
LOC: M LAB 08:47
PROVIDERS: ATTEND Urology
DX: R33.9 Retention of urine, unspecified (principal)

== ENCOUNTER → 2021-05-30 | Outpatient (REF) | payer MEDICARE ==
[~2021-05-30] MED LIST changes: +NITR100C2 PO
== END ==
LOC: M SMT 12:50
PROVIDERS: ATTEND Urology
DX: R33.9 Retention of urine, unspecified (principal)

== ENCOUNTER → 2021-06-01 | Outpatient (CLI) | payer MEDICARE ==
[~2021-06-01] MED LIST changes: -NITR100C2 PO
== END ==
LOC: M LABSMTC 11:32
PROVIDERS: ATTEND Anesthesiology
DX: Z01.818 Encounter for other preprocedural examination (principal); Z11.52 Encounter for screening for COVID-19

== ENCOUNTER 2021-06-06 07:24 | Day surgery (SDC) | payer MEDICARE ==
[~2021-06-06] VITALS: Ht 180.3 cm; Wt 93.0 kg
[~2021-06-06 07:24] MED LIST changes: +CIPROFLOXACIN 400 MG in IV 1 EA IV ONE; +LIDOCAINE 2% 100MG/5ML SDV (FOR ANES.) As Ordered ONE; +LR 1,000 ML IV ONE; +propofoL 200 MG/20 ML VIAL As Ordered ONE
[2021-06-06] MEDS ORDERED: NITR100C2 PO (07:56)
[2021-06-06] MEDS ORDERED: ONDANSETRON 4MG/2ML VIAL As Ordered ONE (10:10)
[2021-06-06] MEDS ORDERED: LR 1,000 ML IV SCH (10:35)
[2021-06-06] MEDS ORDERED: ONDANSETRON 4MG/2ML VIAL IV PRN (10:35)
[2021-06-06] MEDS ORDERED: fentaNYL 100 MCG/2 ML INJECTION IV PRN (10:35)
[2021-06-06] MEDS ORDERED: oxyCODONE 5MG TAB PO PRN (10:35)
[2021-06-06 11:34] VITALS: BP 142/76
== END 2021-06-06 11:40 | disposition home or self-care (01) ==
LOC: M SDC 07:24
PROVIDERS: ATTEND Urology
DX: R31.0 Gross hematuria (principal); R33.9 Retention of urine, unspecified; Z85.51 Personal history of malignant neoplasm of bladder; N40.0 Benign prostatic hyperplasia without lower urinary tract symptoms; Z85.46 Personal history of malignant neoplasm of prostate; I10 Essential (primary) hypertension; Z86.73 Personal history of transient ischemic attack (TIA), and cerebral infarction without residual deficits; Z87.891 Personal history of nicotine dependence; Z79.899 Other long term (current) drug therapy
CPT/HCPCS: 52000; J0744; J2405

== ENCOUNTER 2021-07-22 09:27 | Emergency (ER) | payer MEDICARE ==
[~2021-07-22] VITALS: Ht 167.6 cm; Wt 95.9 kg
[~2021-07-22 09:27] MED LIST changes: -CIPROFLOXACIN 400 MG in IV 1 EA IV ONE; -LIDOCAINE 2% 100MG/5ML SDV (FOR ANES.) As Ordered ONE; -LR 1,000 ML IV ONE; +NITR100C2 PO; -propofoL 200 MG/20 ML VIAL As Ordered ONE
[2021-07-22] MEDS ORDERED: NS 500 ML IV ONE (12:55)
[2021-07-22 13:11] LABS: BASO # 0.1 10^3/uL (0.0-0.2); BASO % 0.6 % (0.0-1.0); EOS % 0.5 % (0.0-3.0); HEMATOCRIT 43.6 % (42.0-52.0); HEMOGLOBIN 14.2 g/dl (13.5-17.5); LYMPH # 1.4 10^3/uL (1.5-5.0); LYMPH % 17.2 % (24.0-44.0); MEAN CORPUSCULAR HGB CONC 32.6 g/dl (32.0-36.5); MEAN CORPUSCULAR VOLUME 92.2 fl (80.0-96.0); MONO # 0.7 10^3/uL (0.0-0.8); MONO % 8.1 % (2.0-8.0); NEUTROPHILS # 5.8 10^3/uL (1.5-8.5); PLATELET COUNT, AUTOMATED 257 10^3/uL (150-450); RED BLOOD COUNT 4.73 10^6/uL (4.30-6.10)
[2021-07-22 13:13] LABS: APPEARANCE, URINE CLEAR (CLEAR); BACTERIA, URINE AUTO NEGATIVE (NEGATIVE); BILIRUBIN, URINE AUTO NEGATIVE (NEGATIVE); BLOOD, URINE BLOOD 2+ (NEGATIVE); COLOR, URINE YELLOW (YELLOW); GLUCOSE, URINE (UA) AUTO NEGATIVE (NEGATIVE); KETONE, URINE AUTO NEGATIVE (NEGATIVE); LEUKOCYTE ESTERASE, URINE AUTO NEGATIVE (NEGATIVE); MUCUS, URINE SMALL (NEGATIVE); NITRITE, URINE AUTO NEGATIVE (NEGATIVE); PROTEIN, URINE AUTO NEGATIVE (NEGATIVE); RBC, URINE AUTO 4 /HPF (0-3); SPECIFIC GRAVITY URINE AUTO 1.009 (1.002-1.035); SQUAMOUS EPITHELIAL CELL UR AU 0 /HPF (0-6); UROBILINOGEN, URINE AUTO 0.2 mg/dL (0.0-2.0); WBC, URINE AUTO 1 /HPF (0-3)
[2021-07-22 13:33] LABS: ALBUMIN 3.3 GM/DL (3.2-5.2); ALT/SGPT 16 U/L (12-78); BILIRUBIN,DIRECT 0.1 MG/DL (0.0-0.2); BILIRUBIN,TOTAL 0.5 MG/DL (0.2-1.0); BLOOD UREA NITROGEN 11 MG/DL (7-18); CALCIUM LEVEL 9.2 MG/DL (8.8-10.2); CARBON DIOXIDE LEVEL 30 MEQ/L (21-32); CHLORIDE LEVEL 102 MEQ/L (98-107); CREATININE FOR GFR 0.92 MG/DL (0.70-1.30); GLOMERULAR FILTRATION RATE > 60.0 (>35); GLUCOSE, FASTING 92 MG/DL (70-100); POTASSIUM SERUM 4.3 MEQ/L (3.5-5.1); SODIUM LEVEL 136 MEQ/L (136-145); TOTAL PROTEIN 6.6 GM/DL (6.4-8.2)
[2021-07-22] MEDS ORDERED: MORPHINE 4 MG/ML 1ML VIAL/SYRINGE IV ONE (13:40)
[2021-07-22] MEDS ORDERED: ISOVUE-370 76% 100ML VIAL As Ordered ONE (13:43)
[2021-07-22 15:40] VITALS: BP 182/96
[2021-07-22] MEDS ORDERED: LISI10TA24 PO (16:25)
== END 2021-07-22 17:07 | disposition home or self-care (01) ==
LOC: M ED 09:27
DX: M51.36 Other intervertebral disc degeneration, lumbar region (principal); I10 Essential (primary) hypertension; K46.9 Unspecified abdominal hernia without obstruction or gangrene; R94.31 Abnormal electrocardiogram [ECG] [EKG]; Z88.0 Allergy status to penicillin; E78.5 Hyperlipidemia, unspecified; C67.9 Malignant neoplasm of bladder, unspecified; Z87.01 Personal history of pneumonia (recurrent); Z86.73 Personal history of transient ischemic attack (TIA), and cerebral infarction without residual deficits; Z79.811 Long term (current) use of aromatase inhibitors; Z79.899 Other long term (current) drug therapy
CPT/HCPCS: 71046; 74177; 80048; 80076; 81001; 83605; 84484; 85025; 93005; 96361; 96374; 99284; J2270; Q9967

== ENCOUNTER 2021-07-24 13:16 | Emergency (ER) | payer MEDICARE ==
[~2021-07-24] VITALS: Ht 167.6 cm; Wt 93.1 kg
[~2021-07-24 13:16] MED LIST changes: +LISI10TA24 PO
[2021-07-24] MEDS ORDERED: NORCO, ANEXSIA 5/325MG TABLET (HYDROcodone/ACETAMINOPHEN) PO ONE (17:50)
[2021-07-24 18:00] LABS: BASO # 0.1 10^3/uL (0.0-0.2); BASO % 0.7 % (0.0-1.0); EOS # 0.1 10^3/uL (0.0-0.5); EOS % 0.9 % (0.0-3.0); HEMATOCRIT 46.1 % (42.0-52.0); LYMPH # 1.6 10^3/uL (1.5-5.0); LYMPH % 16.9 % (24.0-44.0); MEAN CORPUSCULAR HEMOGLOBIN 30.4 pg (27.0-33.0); MEAN CORPUSCULAR HGB CONC 32.5 g/dl (32.0-36.5); MEAN CORPUSCULAR VOLUME 93.3 fl (80.0-96.0); MONO # 0.9 10^3/uL (0.0-0.8); MONO % 8.9 % (2.0-8.0); NEUTROPHILS % 72.4 % (36.0-66.0); PLATELET COUNT, AUTOMATED 311 10^3/uL (150-450); RED BLOOD COUNT 4.94 10^6/uL (4.30-6.10); WHITE BLOOD COUNT 9.7 10^3/uL (4.0-10.0)
[2021-07-24 18:32] LABS: ALBUMIN 3.4 GM/DL (3.2-5.2); ALT/SGPT 16 U/L (12-78); BILIRUBIN,DIRECT < 0.1 MG/DL (0.0-0.2); BILIRUBIN,TOTAL 0.6 MG/DL (0.2-1.0); BLOOD UREA NITROGEN 13 MG/DL (7-18); CALCIUM LEVEL 9.2 MG/DL (8.8-10.2); CARBON DIOXIDE LEVEL 30 MEQ/L (21-32); CHLORIDE LEVEL 101 MEQ/L (98-107); GLOMERULAR FILTRATION RATE > 60.0 (>35); GLUCOSE, FASTING 97 MG/DL (70-100); LIPASE 81 U/L (73-393); POTASSIUM SERUM 4.4 MEQ/L (3.5-5.1); SODIUM LEVEL 136 MEQ/L (136-145); TOTAL PROTEIN 7.2 GM/DL (6.4-8.2)
[2021-07-24] MEDS ORDERED: ISOVUE-370 76% 100ML VIAL As Ordered ONE (18:40)
[2021-07-24 19:14] VITALS: BP 171/88
[2021-07-24] MEDS ORDERED: PERC5TAB12 PO (20:14)
[2021-07-24] MEDS ORDERED: OXYCODONE/APAP 5MG/325MG(BULK FOR ED) 1 TABLET PO ONE (20:20)
== END 2021-07-24 20:38 | disposition home or self-care (01) ==
LOC: M ED 13:16
DX: N40.1 Benign prostatic hyperplasia with lower urinary tract symptoms (principal); K57.90 Diverticulosis of intestine, part unspecified, without perforation or abscess without bleeding; K46.9 Unspecified abdominal hernia without obstruction or gangrene; I10 Essential (primary) hypertension; M51.36 Other intervertebral disc degeneration, lumbar region; Z86.73 Personal history of transient ischemic attack (TIA), and cerebral infarction without residual deficits; C67.9 Malignant neoplasm of bladder, unspecified; Z88.0 Allergy status to penicillin; Z79.811 Long term (current) use of aromatase inhibitors; Z79.899 Other long term (current) drug therapy
CPT/HCPCS: 36415; 74177; 80048; 80076; 81001; 83690; 85025; 99284; Q9967

== ENCOUNTER → 2021-09-05 | Outpatient (CLI) | payer MEDICARE | LOC: M LABSMTC 09:28 | PROVIDERS: ATTEND Anesthesiology | DX: Z01.818 Encounter for other preprocedural examination (principal); Z11.52 Encounter for screening for COVID-19 ==

== ENCOUNTER 2021-09-10 11:08 | Day surgery (SDC) | payer MEDICARE ==
[~2021-09-10] VITALS: Ht 167.6 cm; Wt 93.4 kg
[~2021-09-10 11:08] MED LIST changes: +LR 1,000 ML IV SCH
[2021-09-10] MEDS ORDERED: LR 1,000 ML IV SCH ×2 (11:55→17:30)
[2021-09-10] MEDS ORDERED: LIDOCAINE 1% SDV 5ML VIAL SC PRN (11:55)
[2021-09-10] MEDS ORDERED: BUPIVACAINE HCL 0.25% 30ML VIAL As Ordered ONE (13:53)
[2021-09-10] MEDS ORDERED: ONDANSETRON 4MG/2ML VIAL As Ordered ONE (14:53)
[2021-09-10] MEDS ORDERED: SUGAMMADEX SODIUM 500 MG/5 ML VIAL (BRIDION) As Ordered ONE (14:53)
[2021-09-10] MEDS ORDERED: fentaNYL 250 MCG/5 ML INJECTION As Ordered ONE (14:53)
[2021-09-10] MEDS ORDERED: ROCURONIUM BROMIDE 50 MG/5 ML VIAL As Ordered ONE ×2 (14:53→15:32)
[2021-09-10] MEDS ORDERED: dexameTHASONE 4 MG/ML 1ML VIAL (J1100 PER 1MG) As Ordered ONE (14:53)
[2021-09-10] MEDS ORDERED: MIDAZOLAM INJ 2MG/2ML VIAL (J2250 PER 1MG) As Ordered ONE (14:53)
[2021-09-10] MEDS ORDERED: propofoL 200 MG/20 ML VIAL As Ordered ONE (14:53)
[2021-09-10] MEDS ORDERED: ACETAMINOPHEN 1000MG 100ML IV BTL (OFIRMEV) (J0131 PER 10MG) As Ordered ONE (14:53)
[2021-09-10] MEDS ORDERED: LIDOCAINE 2% 100MG/5ML SDV (FOR ANES.) As Ordered ONE (14:53)
[2021-09-10] MEDS ORDERED: KETOROLAC 60MG 2ML VIAL As Ordered ONE (15:53)
[2021-09-10] MEDS ORDERED: fentaNYL 100 MCG/2 ML INJECTION IV PRN (17:30)
[2021-09-10] MEDS ORDERED: ONDANSETRON 4MG/2ML VIAL IV PRN (17:30)
[2021-09-10] MEDS: oxyCODONE 5MG TAB PO PRN ×2 (18:04→19:01)
[2021-09-10] MEDS: MORPHINE 2 MG/ML 1ML VIAL IV PRN ×2 (18:15→18:39)
[2021-09-10] MEDS ORDERED: NORCO, ANEXSIA 5/325MG TABLET (HYDROcodone/ACETAMINOPHEN) PO PRN (18:30)
[2021-09-10] MEDS ORDERED: ACETAMINOPHEN TAB 650MG DOSE (2X325MG) PO PRN (18:30)
[2021-09-10 20:40] VITALS: BP 148/69
== END 2021-09-10 20:49 | disposition home or self-care (01) ==
LOC: M SDC 11:08
PROVIDERS: ATTEND Surgery
DX: K40.20 Bilateral inguinal hernia, without obstruction or gangrene, not specified as recurrent (principal); I10 Essential (primary) hypertension; E73.9 Lactose intolerance, unspecified; K21.9 Gastro-esophageal reflux disease without esophagitis; Z86.73 Personal history of transient ischemic attack (TIA), and cerebral infarction without residual deficits; Z85.46 Personal history of malignant neoplasm of prostate; Z87.891 Personal history of nicotine dependence; Z79.899 Other long term (current) drug therapy
CPT/HCPCS: 49650; C1781; J0131; J1100; J1885; J2250; J2270; J2405; J3010; S2900

== ENCOUNTER → 2021-12-18 | Outpatient (CLI) | payer MEDICARE ==
[~2021-12-18] MED LIST changes: +E-Z-GAS II EFFERVESCENT PACKET (SODIUM BICARB./CITRIC ACID/SIMETHICONE) As Ordered ONE; +E-Z-HD 98% w/w 340GM SUSP BTL As Ordered ONE; +E-Z-PAQUE 96% w/w SUSP 176GM BTL As Ordered ONE; -LR 1,000 ML IV SCH
== END ==
LOC: M RAD 09:42
PROVIDERS: ATTEND Family Medicine
DX: R10.84 Generalized abdominal pain (principal); K44.9 Diaphragmatic hernia without obstruction or gangrene; K31.7 Polyp of stomach and duodenum

== ENCOUNTER → 2022-01-10 | Outpatient (REF) | payer MEDICARE ==
[~2022-01-10] MED LIST changes: -E-Z-GAS II EFFERVESCENT PACKET (SODIUM BICARB./CITRIC ACID/SIMETHICONE) As Ordered ONE; -E-Z-HD 98% w/w 340GM SUSP BTL As Ordered ONE; -E-Z-PAQUE 96% w/w SUSP 176GM BTL As Ordered ONE
== END ==
LOC: M SMT 16:50
PROVIDERS: ATTEND Urology
DX: R31.0 Gross hematuria (principal); C67.9 Malignant neoplasm of bladder, unspecified

== ENCOUNTER → 2022-06-30 | Outpatient (CLI) | payer MEDICARE ==
[~2022-06-30] MED LIST changes: +CLOP75TA99 PO; -PLAV1TAB2 PO
== END ==
LOC: M PLAIMG 10:46
PROVIDERS: ATTEND Family Medicine
DX: R91.1 Solitary pulmonary nodule (principal)

== ENCOUNTER → 2023-03-31 | Outpatient (REF) | payer MEDICARE ==
[~2023-03-31] MED LIST changes: +MECL-209 PO; -MECL1TAB31 PO; -OXYB5TAB10 PO; +OXYB5TAB11 PO
== END ==
LOC: M SMT 17:22
PROVIDERS: ATTEND Urology
DX: C67.9 Malignant neoplasm of bladder, unspecified (principal)

== ENCOUNTER → 2023-05-25 | Outpatient (REF) | payer MEDICARE ==
[~2023-05-25] MED LIST changes: -OXYB5TAB11 PO; +OXYB5TAB14 PO
[2023-05-25 17:53] LABS: APPEARANCE, URINE CLEAR (CLEAR); BACTERIA, URINE AUTO NEGATIVE (NEGATIVE); BILIRUBIN, URINE AUTO NEGATIVE (NEGATIVE); BLOOD, URINE BLOOD 1+ (NEGATIVE); COLOR, URINE YELLOW (YELLOW); GLUCOSE, URINE (UA) AUTO NEGATIVE (NEGATIVE); KETONE, URINE AUTO NEGATIVE (NEGATIVE); LEUKOCYTE ESTERASE, URINE AUTO NEGATIVE (NEGATIVE); NITRITE, URINE AUTO NEGATIVE (NEGATIVE); PROTEIN, URINE AUTO NEGATIVE (NEGATIVE); RBC, URINE AUTO 2 /HPF (0-3); SPECIFIC GRAVITY URINE AUTO 1.009 (1.002-1.035); SQUAMOUS EPITHELIAL CELL UR AU 0 /HPF (0-6); UROBILINOGEN, URINE AUTO 0.2 mg/dL (0.0-2.0); WBC, URINE AUTO 0 /HPF (0-3)
== END ==
LOC: M LABSMT 15:46
PROVIDERS: ATTEND Urology
DX: N40.0 Benign prostatic hyperplasia without lower urinary tract symptoms (principal)

== ENCOUNTER → 2023-07-13 | Outpatient (CLI) | payer MEDICARE ==
[2023-07-13 10:44] LABS: BASO % 0.7 % (0.0-1.0); EOS # 0.3 10^3/uL (0.0-0.5); EOS % 4.3 % (0.0-3.0); HEMOGLOBIN 15.7 g/dl (13.5-17.5); LYMPH # 1.6 10^3/uL (1.5-5.0); LYMPH % 25.9 % (24.0-44.0); MEAN CORPUSCULAR HEMOGLOBIN 31.7 pg (27.0-33.0); MEAN CORPUSCULAR HGB CONC 32.7 g/dl (32.0-36.5); MONO # 0.5 10^3/uL (0.0-0.8); MONO % 7.8 % (2.0-8.0); NEUTROPHILS # 3.7 10^3/uL (1.5-8.5); NEUTROPHILS % 61.1 % (36.0-66.0); PLATELET COUNT, AUTOMATED 220 10^3/uL (150-450); RED BLOOD COUNT 4.95 10^6/uL (4.30-6.10)
[2023-07-13 11:11] LABS: PROSTATIC SPECIFIC AG MONITOR 1.92 NG/ML (< 4.00)
[2023-07-13 11:13] LABS: ALBUMIN 3.3 G/DL (3.2-5.2); ALKALINE PHOSPHATASE 75 U/L (46-116); ALT/SGPT 11 U/L (7.0-40); AST/SGOT 11 U/L (<34); BILIRUBIN,TOTAL 0.5 MG/DL (0.3-1.2); BLOOD UREA NITROGEN 10 MG/DL (9-23); CALCIUM LEVEL 9.1 MG/DL (8.3-10.6); CARBON DIOXIDE LEVEL 31 MMOL/L (20-31); CHLORIDE LEVEL 106 MMOL/L (98-107); CHOLESTEROL LEVEL 173 MG/DL (<200); CHOLESTEROL RISK RATIO 3.71 (<5); CREATININE FOR GFR 0.94 MG/DL (0.70-1.30); GLOMERULAR FILTRATION RATE > 60.0 (>35); GLUCOSE, FASTING 96 MG/DL (74-106); HDL CHOLESTEROL 46.6 MG/DL (>40); LDL CHOLESTEROL 98.8 MG/DL (<100); NON-HDL-C 126.4 MG/DL; POTASSIUM SERUM 4.8 MMOL/L (3.5-5.1); SODIUM LEVEL 141 MMOL/L (136-145); TOTAL PROTEIN 6.3 G/DL (5.7-8.2); TRIGLYCERIDES LEVEL 138 MG/DL (<150)
== END ==
LOC: M PLALAB 07:15
PROVIDERS: ATTEND Family Medicine
DX: N40.0 Benign prostatic hyperplasia without lower urinary tract symptoms (principal); I10 Essential (primary) hypertension

== ENCOUNTER → 2023-07-30 | Outpatient (CLI) | payer MEDICARE | LOC: M PLAIMG 10:14 | PROVIDERS: ATTEND Family Medicine | DX: R91.1 Solitary pulmonary nodule (principal) ==

== ENCOUNTER → 2023-09-10 | Outpatient (REF) | payer MEDICARE ==
[2023-09-10 13:22] LABS: APPEARANCE, URINE HAZY (CLEAR); BACTERIA, URINE AUTO 1+ (NEGATIVE); BILIRUBIN, URINE AUTO NEGATIVE (NEGATIVE); BLOOD, URINE BLOOD 1+ (NEGATIVE); COLOR, URINE YELLOW (YELLOW); GLUCOSE, URINE (UA) AUTO NEGATIVE (NEGATIVE); KETONE, URINE AUTO NEGATIVE (NEGATIVE); LEUKOCYTE ESTERASE, URINE AUTO 3+ (NEGATIVE); MUCUS, URINE SMALL (NEGATIVE); NITRITE, URINE AUTO POSITIVE (NEGATIVE); PROTEIN, URINE AUTO NEGATIVE (NEGATIVE); RBC, URINE AUTO 3 /HPF (0-3); SQUAMOUS EPITHELIAL CELL UR AU 0 /HPF (0-6); UROBILINOGEN, URINE AUTO 0.2 mg/dL (0.0-2.0); WBC, URINE AUTO 175 /HPF (0-3)
== END ==
LOC: M SMT 12:29
PROVIDERS: ATTEND Urology
DX: N39.0 Urinary tract infection, site not specified (principal)

== ENCOUNTER → 2023-11-13 | Outpatient (REF) | payer MEDICARE ==
[2023-11-13 17:47] LABS: APPEARANCE, URINE CLEAR (CLEAR); BACTERIA, URINE AUTO NEGATIVE (NEGATIVE); BILIRUBIN, URINE AUTO NEGATIVE (NEGATIVE); BLOOD, URINE BLOOD NEGATIVE (NEGATIVE); COLOR, URINE AMBER (YELLOW); GLUCOSE, URINE (UA) AUTO NEGATIVE (NEGATIVE); KETONE, URINE AUTO NEGATIVE (NEGATIVE); LEUKOCYTE ESTERASE, URINE AUTO NEGATIVE (NEGATIVE); MUCUS, URINE SMALL (NEGATIVE); NITRITE, URINE AUTO NEGATIVE (NEGATIVE); PROTEIN, URINE AUTO NEGATIVE (NEGATIVE); RBC, URINE AUTO 1 /HPF (0-3); SPECIFIC GRAVITY URINE AUTO 1.005 (1.002-1.035); SQUAMOUS EPITHELIAL CELL UR AU 1 /HPF (0-6); UROBILINOGEN, URINE AUTO 0.2 mg/dL (0.0-2.0); WBC, URINE AUTO 0 /HPF (0-3)
== END ==
LOC: M SMT 16:37
PROVIDERS: ATTEND Urology
DX: N39.0 Urinary tract infection, site not specified (principal)

== ENCOUNTER → 2024-01-13 | Outpatient (CLI) | payer MEDICARE ==
[2024-01-13 12:05] LABS: ALBUMIN 3.3 G/DL (3.2-5.2); ALKALINE PHOSPHATASE 113 U/L (46-116); ALT/SGPT 20 U/L (7.0-40); AST/SGOT 17 U/L (<34); BILIRUBIN,TOTAL 0.5 MG/DL (0.3-1.2); BLOOD UREA NITROGEN 9 MG/DL (9-23); CARBON DIOXIDE LEVEL 28 MMOL/L (20-31); CHLORIDE LEVEL 109 MMOL/L (98-107); CHOLESTEROL LEVEL 127 MG/DL (<200); CHOLESTEROL RISK RATIO 3.24 (<5); CREATININE FOR GFR 0.88 MG/DL (0.70-1.30); GLOMERULAR FILTRATION RATE > 60.0 (>35); GLUCOSE, FASTING 93 MG/DL (74-106); HDL CHOLESTEROL 39.1 MG/DL (>40); LDL CHOLESTEROL 65.7 MG/DL (<100); NON-HDL-C 87.9 MG/DL; SODIUM LEVEL 142 MMOL/L (136-145); TOTAL PROTEIN 6.2 G/DL (5.7-8.2); TRIGLYCERIDES LEVEL 111 MG/DL (<150)
== END ==
LOC: M PLALAB 07:48
PROVIDERS: ATTEND Internal Medicine Cardiovascular Disease
DX: I10 Essential (primary) hypertension (principal); E78.5 Hyperlipidemia, unspecified

== ENCOUNTER → 2024-04-04 | Outpatient (REF) | payer MEDICARE | LOC: M SMT 13:01 | PROVIDERS: ATTEND Urology | DX: C67.9 Malignant neoplasm of bladder, unspecified (principal) ==

== ENCOUNTER → 2024-07-01 | Outpatient (CLI) | payer MEDICARE | LOC: M WUC 14:28 | PROVIDERS: ATTEND Nurse Practitioner Family | DX: J06.9 Acute upper respiratory infection, unspecified (principal); R05.9 Cough, unspecified; Z20.828 Contact with and (suspected) exposure to other viral communicable diseases ==

== ENCOUNTER → 2024-07-18 | Outpatient (CLI) | payer MEDICARE ==
[~2024-07-18] MED LIST changes: -FLOM0.4C39 PO; +TAMS-18 PO
[2024-07-18 10:24] LABS: BASO # 0.1 10^3/uL (0.0-0.2); EOS # 0.2 10^3/uL (0.0-0.5); HEMATOCRIT 42.8 % (42.0-52.0); HEMOGLOBIN 13.7 g/dl (13.5-17.5); LYMPH # 1.5 10^3/uL (1.5-5.0); LYMPH % 30.4 % (24.0-44.0); MEAN CORPUSCULAR HEMOGLOBIN 28.4 pg (27.0-33.0); MEAN CORPUSCULAR VOLUME 88.6 fl (80.0-96.0); MONO # 0.4 10^3/uL (0.0-0.8); MONO % 8.9 % (2.0-8.0); NEUTROPHILS # 2.7 10^3/uL (1.5-8.5); NEUTROPHILS % 55.3 % (36.0-66.0); PLATELET COUNT, AUTOMATED 275 10^3/uL (150-450); RED BLOOD COUNT 4.83 10^6/uL (4.30-6.10); WHITE BLOOD COUNT 4.8 10^3/uL (4.0-10.0)
[2024-07-18 11:00] LABS: ALBUMIN 3.2 G/DL (3.2-5.2); BILIRUBIN,TOTAL 0.5 MG/DL (0.3-1.2); CALCIUM LEVEL 8.8 MG/DL (8.3-10.6); CREATININE FOR GFR 1.14 MG/DL (0.70-1.30); POTASSIUM SERUM 4.5 MMOL/L (3.5-5.1); TOTAL PROTEIN 6.2 G/DL (5.7-8.2)
== END ==
LOC: M PLALAB 07:55
PROVIDERS: ATTEND Family Medicine
DX: I10 Essential (primary) hypertension (principal)

== ENCOUNTER → 2024-07-18 | Outpatient (CLI) | payer MEDICARE ==
[~2024-07-18] MED LIST changes: +FLOM0.4C39 PO; -TAMS-18 PO
[2024-07-18 10:57] LABS: CHOLESTEROL RISK RATIO 3.85 (<5); HDL CHOLESTEROL 48.2 MG/DL (>40); NON-HDL-C 137.8 MG/DL
== END ==
LOC: M PLALAB 07:58
PROVIDERS: ATTEND Internal Medicine Cardiovascular Disease
DX: I25.118 Atherosclerotic heart disease of native coronary artery with other forms of angina pectoris (principal); I10 Essential (primary) hypertension; I73.9 Peripheral vascular disease, unspecified; E78.5 Hyperlipidemia, unspecified